=== PATIENT | male | born 1940 | race Caucasian/White ===

== ENCOUNTER → 2018-02-06 11:28 | Outpatient (CLI) | payer MEDICARE, SELFPAY ==
[2018-02-06 12:06] LABS: Absolute Lymphocyte Count 1.88 X10^3/ul (0.83-4.51); Absolute Neutrophil Count 3.2 X10^3/uL (2.0-7.7); Basophil# 0.02 X10^3/uL; Basophil% 0.3 % (0-1); Eosinophil# 0.21 X10^3/uL; Eosinophils% 3.5 % (0-5); Hematocrit 37.8 % (40-54); Hemoglobin 12.4 g/dl (13.0-16.5); Lymphocyte # 1.88 X10^3/ul (4.0); Lymphocyte % 31.3 % (19-41); Mean Corp Hgb Conc 32.8 g/gl (32-36); Mean Corpuscular Hgb 29.4 pg (27.0-32.0); Mean Corpuscular Volume 89.6 fL (80-94); Mean Platelet Vol. 9.3 fl (6.2-12.0); Monocyte% 11.6 % (0-10); Neutrophil # 3.19 X10^3/uL (2.7-7.7); Neutrophil % 53.1 % (47-70); Platelet Count 162 K/mm3 (150-450); RBC Distribution Width CV 15.1 % (11.6-14.6); RBC Distribution Width SD 49.2 fl (35.1-43.9); Red Blood Count 4.22 M/mm3 (4.6-6.2)
[2018-02-06 12:08] LABS: POSITIVE COUNT NO; POSITIVE DIFFERENTIAL NO; POSITIVE MORPHOLOGY NO
[2018-02-06 12:10] LABS: International Normalized Ratio 1.1; Prothrombin Time (Protime)PT. 14.5 SECONDS (11.7-14.9)
[2018-02-06 12:43] LABS: Anion Gap 7 (5-15); BUN 16 mg/dL (7-18); BUN/Creat Ratio 11.2 RATIO (10-20); Calcium,Total 8.4 mg/dL (8.5-10.1); Chloride 108 mmol/L (98-107); Creatinine, Serum 1.43 mg/dL (0.70-1.30); EST Glomerular Filtration Rate 51 mL/min (>60); Est Glom Filt Rate - Afr Amer 62 mL/min (>60); Glucose 86 mg/dL (74-106); Potassium 4.2 mmol/L (3.5-5.1); Sodium Level 140 mmol/L (136-145)
== END ==
PROVIDERS: Family Provider Family Medicine Geriatric Medicine; PCP Family Medicine Geriatric Medicine; Visit Provider Family Medicine Geriatric Medicine
DX: Z01.818 Encounter for other preprocedural examination (principal); I48.0 Paroxysmal atrial fibrillation
CPT/HCPCS: 80048; 85025; 85610

== ENCOUNTER → 2018-03-02 14:11 | Outpatient (CLI) | payer MEDICARE, SELFPAY ==
[2018-03-02 16:34] LABS: Absolute Lymphocyte Count 2.11 X10^3/ul (0.83-4.51); Absolute Neutrophil Count 5.8 X10^3/uL (2.0-7.7); Basophil# 0.02 X10^3/uL; Basophil% 0.2 % (0-1); Eosinophil# 0.07 X10^3/uL; Eosinophils% 0.7 % (0-5); Hemoglobin 11.6 g/dl (13.0-16.5); Lymphocyte # 2.11 X10^3/ul (4.0); Lymphocyte % 22.5 % (19-41); Mean Corp Hgb Conc 33.1 g/gl (32-36); Mean Corpuscular Hgb 29.2 pg (27.0-32.0); Mean Corpuscular Volume 88.2 fL (80-94); Mean Platelet Vol. 9.5 fl (6.2-12.0); Monocyte# 1.33 X10^3/uL; Monocyte% 14.2 % (0-10); Neutrophil # 5.81 X10^3/uL (2.7-7.7); Neutrophil % 62.2 % (47-70); Platelet Count 210 K/mm3 (150-450); RBC Distribution Width CV 14.6 % (11.6-14.6); RBC Distribution Width SD 46.8 fl (35.1-43.9); Red Blood Count 3.97 M/mm3 (4.6-6.2); White Blood Count 9.4 K/mm3 (4.4-11.0)
[2018-03-02 16:57] LABS: Anion Gap 10 (5-15); BUN 23 mg/dL (7-18); BUN/Creat Ratio 11.9 RATIO (10-20); Calcium,Total 8.8 mg/dL (8.5-10.1); Chloride 106 mmol/L (98-107); Creatinine, Serum 1.94 mg/dL (0.70-1.30); EST Glomerular Filtration Rate 36 mL/min (>60); Est Glom Filt Rate - Afr Amer 44 mL/min (>60); Glucose 107 mg/dL (74-106); POSITIVE COUNT NO; POSITIVE DIFFERENTIAL NO; POSITIVE MORPHOLOGY NO; Potassium 3.8 mmol/L (3.5-5.1); Sodium Level 138 mmol/L (136-145); Uric Acid 8.3 mg/dL (3.5-7.2)
== END ==
PROVIDERS: Family Provider Family Medicine Geriatric Medicine; PCP Family Medicine Geriatric Medicine; Visit Provider Family Medicine Geriatric Medicine
DX: R79.9 Abnormal finding of blood chemistry, unspecified (principal)
CPT/HCPCS: 36415; 80048; 84550; 85025

== ENCOUNTER → 2018-05-29 13:28 | Outpatient (CLI) | payer MEDICARE, SELFPAY ==
[2018-05-29 17:12] LABS: Absolute Lymphocyte Count 1.88 X10^3/ul (0.83-4.51); Absolute Neutrophil Count 4.3 X10^3/uL (2.0-7.7); Basophil# 0.02 X10^3/uL; Basophil% 0.3 % (0-1); Eosinophil# 0.09 X10^3/uL; Eosinophils% 1.3 % (0-5); Hematocrit 38.2 % (40-54); Hemoglobin 12.4 g/dl (13.0-16.5); Lymphocyte # 1.88 X10^3/ul (4.0); Lymphocyte % 27.6 % (19-41); Mean Corp Hgb Conc 32.5 g/gl (32-36); Mean Corpuscular Hgb 30.3 pg (27.0-32.0); Mean Corpuscular Volume 93.4 fL (80-94); Mean Platelet Vol. 9.8 fl (6.2-12.0); Monocyte# 0.56 X10^3/uL; Monocyte% 8.2 % (0-10); Neutrophil # 4.26 X10^3/uL (2.7-7.7); Neutrophil % 62.5 % (47-70); Platelet Count 177 K/mm3 (150-450); RBC Distribution Width SD 56.3 fl (35.1-43.9); Red Blood Count 4.09 M/mm3 (4.6-6.2); White Blood Count 6.8 K/mm3 (4.4-11.0)
[2018-05-29 17:33] LABS: ALB/GLOB Ratio 0.9 RATIO (0.9-2.4); AST(SGOT) 22 U/L (15-37); Alanine Aminotransfer ALT/SGPT 24 U/L (16-61); Albumin, Serum 3.1 g/dL (3.2-5.0); Alkaline Phosphatase 84 U/L (45-117); Anion Gap 9 (5-15); BUN 15 mg/dL (7-18); BUN/Creat Ratio 9.9 RATIO (10-20); Calcium,Total 8.3 mg/dL (8.5-10.1); Chloride 108 mmol/L (98-107); Creatinine, Serum 1.51 mg/dL (0.70-1.30); EST Glomerular Filtration Rate 48 mL/min (>60); Est Glom Filt Rate - Afr Amer 58 mL/min (>60); Globulin 3.6 g/dL (2.2-4.2); Glucose 112 mg/dL (74-106); Potassium 4.5 mmol/L (3.5-5.1); Protein, Total 6.7 g/dL (6.4-8.2); Sodium Level 144 mmol/L (136-145); Thyroid Stim Hormone (TSH) 2.43 uIU/mL (0.358-3.74)
[2018-05-29 17:34] LABS: Vitamin D,25 Hydroxy 26.1 ng/mL (29.95-100.01)
[2018-05-29 18:17] LABS: POSITIVE COUNT NO; POSITIVE DIFFERENTIAL NO; POSITIVE MORPHOLOGY NO
== END ==
PROVIDERS: Family Provider Family Medicine Geriatric Medicine; PCP Family Medicine Geriatric Medicine; Visit Provider Family Medicine Geriatric Medicine
DX: I10 Essential (primary) hypertension (principal); E55.9 Vitamin D deficiency, unspecified; M10.9 Gout, unspecified
CPT/HCPCS: 36415; 80053; 82306; 84443; 84550; 85025

== ENCOUNTER → 2018-10-13 12:39 | Outpatient (CLI) | payer MEDICARE, SELFPAY ==
[2018-10-13 13:09] LABS: Hematocrit 37.6 % (40-54); Hemoglobin 12.4 g/dl (13.0-16.5); Mean Corpuscular Hgb 30.7 pg (27.0-32.0); Mean Corpuscular Volume 93.1 fL (80-94); Mean Platelet Vol. 9.3 fl (6.2-12.0); Platelet Count 183 K/mm3 (150-450); RBC Distribution Width CV 14.7 % (11.6-14.6); RBC Distribution Width SD 48.5 fl (35.1-43.9); Red Blood Count 4.04 M/mm3 (4.6-6.2); Scan Indicated on CBC? Y/N NO; White Blood Count 6.1 K/mm3 (4.4-11.0)
[2018-10-13 13:30] LABS: Anion Gap 5 (5-15); BUN 18 mg/dL (7-18); BUN/Creat Ratio 11.2 RATIO (10-20); Calcium,Total 8.5 mg/dL (8.5-10.1); Chloride 108 mmol/L (98-107); Creatinine, Serum 1.61 mg/dL (0.70-1.30); EST Glomerular Filtration Rate 45 mL/min (>60); Est Glom Filt Rate - Afr Amer 54 mL/min (>60); Glucose 95 mg/dL (74-106); Potassium 4.9 mmol/L (3.5-5.1); Sodium Level 140 mmol/L (136-145)
== END ==
PROVIDERS: Family Provider Family Medicine Geriatric Medicine; PCP Family Medicine Geriatric Medicine; Referring Provider Family Medicine Geriatric Medicine; Visit Provider Family Medicine Geriatric Medicine
DX: Z01.810 Encounter for preprocedural cardiovascular examination (principal)
CPT/HCPCS: 36415; 80048; 85027

== ENCOUNTER → 2018-11-27 13:41 | Outpatient (CLI) | payer MEDICARE, SELFPAY ==
--- NOTE | 2018-11-27 13:44 | VDLE_ITS ---
Reason For Study: PAIN RIGHT GSV is normal. CFV is compressible, spontaneous, phasic, competent and demonstrates normal augmentation. FV is compressible, spontaneous, phasic, competent and demonstrates normal augmentation. POP V is compressible, spontaneous, phasic, competent and demonstrates normal augmentation. T/P Trunk is compressible. PTV is compressible. RT PerV is compressible. Procedure Exam performed in department. A preliminary report was called and/or faxed to [facility]. Interpretation Summary Deep veins of the right lower extremity are patent and compressible segmentally. There is no evidence of right lower extremity deep vein thrombosis. Valvular competence appears intact within the proximal deep venous system on the right . The right greater saphenous vein appears patent and compressible segmentally. Ordering Physician: Britton Pike, GL[employer]ING MACHINE FEEDER-C Referring Physician: BLAINE PINEDA CHI Performed By: Brittany Zhao, AILIN, RVT
--- OUTSIDE RECORDS SUMMARY | 2019-01-30 01:52 | XMS RPT_ITS ---
:1940 Author Organization OHIP Care Team Providers Name Role Phone Avni Smith Attending Unavailable PROVIDER, UNKNOWN Referring Unavailable MIRIAM, BLAINE-CHI Primary Care Unavailable Britton Canela Attending Unavailable Britton Canela Referring Unavailable Miriam, Blaine Chi Primary Care Unavailable Miriam, Blaine Chi Attending Unavailable Miriam, Blaine Chi Primary Care Unavailable Miriam, Blaine Chi Attending Unavailable Miriam, Blaine Chi Primary Care Unavailable Miriam, Blaine Chi Attending Unavailable Miriam, Blaine Chi Primary Care Unavailable Miriam, Blaine Chi Attending Unavailable Miriam, Blaine Chi Primary Care Unavailable Miriam, Blaine Chi Attending Unavailable Miriam, Blaine Chi Referring Unavailable Miriam, Blaine Chi Primary Care Unavailable PROBLEMS PROBLEMS DATE TYPE CONDITION / CODE ATTENDING STATUS SOURCE 10/13/2018 Unknown Z01.810 - Encounter Miriam, Blaine Chi Active [place] for preprocedural [facility] Hospital examination / Repository Z01.810(ICD-10) 02/06/2018 Unknown Z01.818 - Encounter Miriam, Blaine Chi Active [place] for other [facility] preprocedural Hospital examination / Repository Z01.818(ICD-10) 01/17/2018 Admitting Spinal stenosis, Luis, Active [facility] Diagnosis lumbar region [facility] without neurogenic Repository allie / M48.061(ICD-10) 01/17/2018 Admitting 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 Rep #: [id number] : 1940 78 From: Dell Aguilar MD Attending Dr: SADA Reed Status: REG CLI Ordering Dr: Britton Canela Date: 11/27/18 Location: [facility]S Sex: M C Admitted: Reason For Study: PAIN RIGHT GSV is normal. CFV is compressible, spontaneous, phasic, competent and demonstrates normal augmentation. FV is compressible, spontaneous, phasic, competent and demonstrates normal augmentation. POP V is compressible, spontaneous, phasic, competent and demonstrates normal augmentation. T/P Trunk is compressible. PTV is compressible. RT PerV is compressible. Procedure Exam performed in department. A preliminary report was called and/or faxed to [facility]. Interpretation Summary Deep veins of the right lower extremity are patent and compressible segmentally. There is no evidence of right lower extremity deep vein thrombosis. Valvular competence appears intact within the proximal deep venous system on the right . The right greater saphenous vein appears patent and compressible segmentally. Ordering Physician: SADA Reed Referring Physician: BLAINE PINEDA CHI Performed By: Brittany Zhao, AILIN, RVT 11/28/18 1630 Date Dell Aguilar MD CC: ROLL GRINDER OPERATOR-C Britton Canela; Blaine Pineda MD Date Dictated: 11/27/18 1401 Date Transcribed: 11/28/18 1630 Cheese Tester: Signed CBC W/DIFF, AUTOMATED Collected: 11/28/2018 Status: F Source: [place] 4:15 PM [facility] REPOSITORY TYPE CODE TESTS RESULT OUT OF RANGE REFERENCE UNITS LAB L100.1000 4.4-11.0 K/mm3 Normal WBC 7.1 LAB L100.1200 4.6-6.2 M/mm3 Low RBC 3.12 LAB L100.1300 13.0-16.5 g/dl Low HGB 9.0 LAB L100.1400 40-54 % Low HCT 28.6 LAB L100.1500 80-94 fL Normal MCV 91.7 LAB L100.1600 27.0-32.0 pg Normal MCH 28.8 LAB L100.1700 32-36 g/gl Low MCHC 31.5 LAB L100.1810 11.6-14.6 % Normal RDW CV 14.2 LAB L100.1820 35.1-43.9 fl High RDW SD 46.7 LAB L100.1900 150-450 K/mm3 Normal PLT 382 LAB L100.2000 6.2-12.0 fl Normal MPV 8.7 LAB L100.2100 47-70 % Normal NEUT% 63.2 LAB L100.2200 19-41 % Normal LY% 23.7 LAB L100.2300 0-10 % Normal MONO% 9.5 LAB L100.2400 0-5 % Normal EO% 2.8 LAB L100.2500 0-1 % Normal BASO% 0.7 LAB L100.2550 0.0-0.9 % Normal IM GRAN % 0.100 Result Comment: IG% - Immature Granulocytes (promyelocytes, myelocytes and metamyelocytes) > 1% indicates that a LEFT SHIFT is Present. LAB L100.2620 2.0-7.7 X10 3/uL Normal Absolute Neut 4.5 LAB L100.2720 0.83-4.51 X10 3/ul Normal Absolute Lymph 1.69 Performed By: #### L100.0100 #### [facility] [place], [place], [address] COMPREHENSIVE METABOLIC Collected: 11/28/2018 Status: F Source: [place]ONE[place] 4:15 PM [facility] REPOSITORY TYPE CODE TESTS RESULT OUT OF RANGE REFERENCE UNITS LAB L501.0100 74-106 mg/dL Normal GLU 105 Result Comment: Fasting Glucose result from 100 to 125 mg/dL suggests IMPAIRED HOMEOSTASIS per A.D.A. criteria. Please note revised GLUCOSE reference range effective 2017. LAB L501.1000 7-18 mg/dL Normal BUN 12 LAB L501.1100 0.70-1.30 mg/dL High CREAT,SERUM 1.35 Result Comment: The validity of the calculated GFR AND GFRAA in patients over 70 years has not been determined. Clinical correlation is essential. LAB L501.1110 >60 mL/min Low EST GFR 55 Result Comment: Non- GFR Calc LAB L501.1115 >60 mL/min Normal EST GFR - AA 66 Result Comment: GFR Calc LAB L501.1300 10-20 RATIO Low BUN/CRE 8.9 LAB L501.1500 6.4-8.2 g/dL Normal T PROT 6.6 LAB L501.1800 3.2-5.0 g/dL Low ALB 2.8 LAB L501.1950 2.2-4.2 g/dL Normal GLOB 3.8 LAB L501.2000 0.9-2.4 RATIO Low A/G 0.7 LAB L501.2200 8.5-10.1 mg/dL Low CA 8.4 LAB L501.4100 15-37 U/L Normal AST 23 LAB L501.4305 45-117 U/L Normal ALK P 102 LAB L501.4405 16-61 U/L Normal ALT 26 LAB L501.4600 0.20-1.00 mg/dL Normal T BILI 0.20 LAB L501.5300 136-145 mmol/L Normal NA 141 LAB L501.5600 3.5-5.1 mmol/L Normal K 4.2 LAB L501.5900 98-107 mmol/L Normal CL 107 LAB L501.6100 21.0-32.0 mmol/L Normal CO2 24.0 LAB L501.6200 5-15 Normal GAP 10 Performed By: #### L500.4050, L500.4100, L501.1400, L501.9520 #### [facility] [address] [place], [place], [address] LIPID PROFILE Collected: 11/28/2018 Status: F Source: [place] 4:15 PM [facility] REPOSITORY TYPE CODE TESTS RESULT OUT OF RANGE REFERENCE UNITS LAB L501.4900 200 mg/dL Normal CHOL 106 Result Comment: <200 mg/dL Desirable 200-240 mg/dL Borderline >240 mg/dL High Risk LAB L501.5000 mg/dL Normal TRIG 137 Result Comment: The drugs N-Acetylcysteine and Metamizole may falsely depress this assay. Serum Triglycerides Reference Interval Normal <150 mg/dL Borderline high 150 - 199 mg/dL High 200 - 499 mg/dL Very High > or = 500 mg/dL LAB L501.6400 mg/dL Low HDL 29 Result Comment: The drugs N-Acetylcysteine and Metamizole may falsely depress this assay. Reference Range HDL <40 mg/dL Low HDL Cholesterol HDL >or= 60 mg/dL High HDL Cholesterol LAB L501.6500 0-130 mg/dL Normal LDL 50 LAB L501.6600 5-40 mg/dL Normal VLDL 27 Performed By: #### L500.4050, L500.4100, L501.1400, L501.9520 #### [facility] [address] [place], [place], [address] URIC ACID Collected: 11/28/2018 Status: F Source: [place] 4:15 PM [facility] REPOSITORY TYPE CODE TESTS RESULT OUT OF RANGE REFERENCE UNITS LAB L501.1400 3.5-7.2 mg/dL High URIC 8.2 Result Comment: The drugs N-Acetylcysteine and Metamizole may falsely depress this assay. Performed By: #### L500.4050, L500.4100, L501.1400, L501.9520 #### [facility] [address] [place], [place], [address] THYROID STIM HORMONE Collected: 11/28/2018 Status: F Source: [place] (TSH) 4:15 PM [facility] REPOSITORY TYPE CODE TESTS RESULT OUT OF RANGE REFERENCE UNITS LAB L501.9520 0.358-3.74 uIU/mL Normal TSH 1.01 Performed By: #### L500.4050, L500.4100, L501.1400, L501.9520 #### [facility] [address] [place], [address] VITAMIN D,25 HYDROXY Collected: 11/28/2018 Status: F Source: [place] 4:15 PM [facility] REPOSITORY TYPE CODE TESTS RESULT OUT OF REFERENCE UNITS RANGE LAB L506.1000 29.95-100.01 ng/mL Low Vitamin D 17.2 25-OH Result Comment: Vitamin D 25(OH) Status Range Deficiency <20 ng/mL (50nmol/L) Insuffciency 20 - 30 ng/mL (50 - 75 nmol/L) Sufficiency 30 - 100 ng/mL (75 - 250 nmol/L) Toxicity >100 ng/mL (>250 nmol/L) Performed By: #### L506.1000 #### [facility] [address] [place], [place], [address] CBC-COMPLETE BLOOD CNT Collected: 10/13/2018 Status: F Source: [place] NO DIFF 12:48 PM [facility] REPOSITORY Order Comment: PT REFUSED INR INSURANCE WONT COVER. TYPE CODE TESTS RESULT OUT OF RANGE REFERENCE UNITS LAB L100.1000 4.4-11.0 K/mm3 Normal WBC 6.1 LAB L100.1200 4.6-6.2 M/mm3 Low RBC 4.04 LAB L100.1300 13.0-16.5 g/dl Low HGB 12.4 LAB L100.1400 40-54 % Low HCT 37.6 LAB L100.1500 80-94 fL Normal MCV 93.1 LAB L100.1600 27.0-32.0 pg Normal MCH 30.7 LAB L100.1700 32-36 g/gl Normal MCHC 33.0 LAB L100.1810 11.6-14.6 % High RDW CV 14.7 LAB L100.1820 35.1-43.9 fl High RDW SD 48.5 LAB L100.1900 150-450 K/mm3 Normal PLT 183 LAB L100.2000 6.2-12.0 fl Normal MPV 9.3 Performed By: #### L100.0500 #### [facility] [address] [place], [address] BASIC METABOLIC Collected: 10/13/2018 Status: F Source: [place] ESCOBAR ([facility]) 12:48 PM [facility] REPOSITORY Order Comment: PT REFUSED INR INSURANCE WONT COVER. TYPE CODE TESTS RESULT OUT OF RANGE REFERENCE UNITS LAB L501.0100 74-106 mg/dL Normal GLU 95 Result Comment: Please note revised GLUCOSE reference range effective 2017. LAB L501.1000 7-18 mg/dL Normal BUN 18 LAB L501.1100 0.70-1.30 mg/dL High CREAT,SERUM 1.61 Result Comment: The validity of the calculated GFR AND GFRAA in patients over 70 years has not been determined. Clinical correlation is essential. LAB L501.1110 >60 mL/min Low EST GFR 45 Result Comment: Non- GFR Calc LAB L501.1115 >60 mL/min Low EST GFR - AA 54 Result Comment: GFR Calc LAB L501.1300 10-20 RATIO Normal BUN/CRE 11.2 LAB L501.2200 8.5-10.1 mg/dL CA Normal 8.5 LAB L501.5300 136-145 mmol/L NA Normal 140 LAB L501.5600 3.5-5.1 mmol/L K Normal 4.9 LAB L501.5900 98-107 mmol/L High CL 108 LAB L501.6100 21.0-32.0 mmol/L Normal CO2 27.0 LAB L501.6200 5-15 Normal GAP 5 Performed By: #### L500.2500 #### [facility] [place], [address] COMPREHENSIVE METABOLIC Collected: 05/29/2018 Status: F Source: [place] ROONEY 1:31 PM [facility] REPOSITORY TYPE CODE TESTS RESULT OUT OF RANGE REFERENCE UNITS LAB L501.0100 74-106 mg/dL High GLU 112 Result Comment: Fasting Glucose result from 100 to 125 mg/dL suggests IMPAIRED HOMEOSTASIS per A.D.A. criteria. Please note revised GLUCOSE reference range effective 2017. LAB L501.1000 7-18 mg/dL Normal BUN 15 LAB L501.1100 0.70-1.30 mg/dL High CREAT,SERUM 1.51 Result Comment: The validity of the calculated GFR AND GFRAA in patients over 70 years has not been determined. Clinical correlation is essential. LAB L501.1110 >60 mL/min Low EST GFR 48 Result Comment: Non- GFR Calc LAB L501.1115 >60 mL/min Low EST GFR - AA 58 Result Comment: GFR Calc LAB L501.1300 10-20 RATIO Low BUN/CRE 9.9 LAB L501.1500 6.4-8.2 g/dL Normal T PROT 6.7 LAB L501.1800 3.2-5.0 g/dL Low ALB 3.1 LAB L501.1950 2.2-4.2 g/dL Normal GLOB 3.6 LAB L501.2000 0.9-2.4 RATIO Normal A/G 0.9 LAB L501.2200 8.5-10.1 mg/dL Low CA 8.3 LAB L501.4100 15-37 U/L Normal AST 22 LAB L501.4305 45-117 U/L Normal ALK P 84 LAB L501.4405 16-61 U/L Normal ALT 24 LAB L501.4600 0.20-1.00 mg/dL Normal T BILI 0.30 LAB L501.5300 136-145 mmol/L Normal NA 144 LAB L501.5600 3.5-5.1 mmol/L Normal K 4.5 LAB L501.5900 98-107 mmol/L High CL 108 LAB L501.6100 21.0-32.0 mmol/L Normal CO2 27.0 LAB L501.6200 5-15 Normal GAP 9 Performed By: #### L500.4050, L501.1400, L501.9520 #### [facility] [address] [place], [place], [address] URIC ACID Collected: 05/29/2018 Status: F Source: [place] 1:31 PM [facility] REPOSITORY TYPE CODE TESTS RESULT OUT OF RANGE REFERENCE UNITS LAB L501.1400 3.5-7.2 mg/dL High URIC 8.0 Result Comment: The drugs N-Acetylcysteine and Metamizole may falsely depress this assay. Performed By: #### L500.4050, L501.1400, L501.9520 #### [facility] [address] [place], [address] THYROID STIM HORMONE Collected: 05/29/2018 Status: F Source: [place] (TSH) 1:31 PM [facility] REPOSITORY TYPE CODE TESTS RESULT OUT OF RANGE REFERENCE UNITS LAB L501.9520 0.358-3.74 uIU/mL Normal TSH 2.43 Performed By: #### L500.4050, L501.1400, L501.9520 #### [facility] [address] [place], [address] VITAMIN D,25 HYDROXY Collected: 05/29/2018 Status: F Source: [place] 1:31 PM [facility] REPOSITORY TYPE CODE TESTS RESULT OUT OF REFERENCE UNITS RANGE LAB L506.1000 29.95-100.01 ng/mL Low Vitamin D 26.1 25-OH Result Comment: Vitamin D 25(OH) Status Range Deficiency <20 ng/mL (50nmol/L) Insuffciency 20 - 30 ng/mL (50 - 75 nmol/L) Sufficiency 30 - 100 ng/mL (75 - 250 nmol/L) Toxicity >100 ng/mL (>250 nmol/L) Performed By: #### L506.1000 #### [facility] [address] [place], [address] CBC W/DIFF, AUTOMATED Collected: 05/29/2018 Status: F Source: [place] 1:31 PM [facility] REPOSITORY TYPE CODE TESTS RESULT OUT OF RANGE REFERENCE UNITS LAB L100.1000 4.4-11.0 K/mm3 Normal WBC 6.8 LAB L100.1200 4.6-6.2 M/mm3 Low RBC 4.09 LAB L100.1300 13.0-16.5 g/dl Low HGB 12.4 LAB L100.1400 40-54 % Low HCT 38.2 LAB L100.1500 80-94 fL Normal MCV 93.4 LAB L100.1600 27.0-32.0 pg Normal MCH 30.3 LAB L100.1700 32-36 g/gl Normal MCHC 32.5 LAB L100.1810 11.6-14.6 % High RDW CV 17.0 LAB L100.1820 35.1-43.9 fl High RDW SD 56.3 LAB L100.1900 150-450 K/mm3 Normal PLT 177 LAB L100.2000 6.2-12.0 fl Normal MPV 9.8 LAB L100.2100 47-70 % Normal NEUT% 62.5 LAB L100.2200 19-41 % Normal LY% 27.6 LAB L100.2300 0-10 % Normal MONO% 8.2 LAB L100.2400 0-5 % Normal EO% 1.3 LAB L100.2500 0-1 % Normal BASO% 0.3 LAB L100.2550 0.0-0.9 % Normal IM GRAN % 0.100 Result Comment: IG% - Immature Granulocytes (promyelocytes, myelocytes and metamyelocytes) > 1% indicates that a LEFT SHIFT is Present. LAB L100.2620 2.0-7.7 X10 3/uL Normal Absolute Neut 4.3 LAB L100.2720 0.83-4.51 X10 3/ul Normal Absolute Lymph 1.88 Performed By: #### L100.0100 #### [facility] [address] [place], [address] BASIC METABOLIC Collected: 03/02/2018 Status: F Source: [place] PROFILE ([facility]) 2:12 PM [facility] REPOSITORY TYPE CODE TESTS RESULT OUT OF RANGE REFERENCE UNITS LAB L501.0100 74-106 mg/dL High GLU 107 Result Comment: Fasting Glucose result from 100 to 125 mg/dL suggests IMPAIRED HOMEOSTASIS per A.D.A. criteria. Please note revised GLUCOSE reference range effective 2017. LAB L501.1000 7-18 mg/dL High BUN 23 LAB L501.1100 0.70-1.30 mg/dL High CREAT,SERUM 1.94 Result Comment: The validity of the calculated GFR AND GFRAA in patients over 70 years has not been determined. Clinical correlation is essential. LAB L501.1110 >60 mL/min Low EST GFR 36 Result Comment: Non- GFR Calc LAB L501.1115 >60 mL/min Low EST GFR - AA 44 Result Comment: GFR Calc LAB L501.1300 10-20 RATIO Normal BUN/CRE 11.9 LAB L501.2200 8.5-10.1 mg/dL CA Normal 8.8 LAB L501.5300 136-145 mmol/L NA Normal 138 LAB L501.5600 3.5-5.1 mmol/L K Normal 3.8 LAB L501.5900 98-107 mmol/L CL Normal 106 LAB L501.6100 21.0-32.0 mmol/L Normal CO2 22.0 LAB L501.6200 5-15 Normal GAP 10 Performed By: #### L500.2500, L501.1400 #### [facility] [address] [place], [address] URIC ACID Collected: 03/02/2018 Status: F Source: [place] 2:12 PM [facility] REPOSITORY TYPE CODE TESTS RESULT OUT OF RANGE REFERENCE UNITS LAB L501.1400 3.5-7.2 mg/dL High URIC 8.3 Result Comment: The drugs N-Acetylcysteine and Metamizole may falsely depress this assay. Performed By: #### L500.2500, L501.1400 #### [facility] [address] [place], [address] CBC W/DIFF, AUTOMATED Collected: 03/02/2018 Status: F Source: [place] 2:12 PM [facility] REPOSITORY TYPE CODE TESTS RESULT OUT OF RANGE REFERENCE UNITS LAB L100.1000 4.4-11.0 K/mm3 Normal WBC 9.4 LAB L100.1200 4.6-6.2 M/mm3 Low RBC 3.97 LAB L100.1300 13.0-16.5 g/dl Low HGB 11.6 LAB L100.1400 40-54 % Low HCT 35.0 LAB L100.1500 80-94 fL Normal MCV 88.2 LAB L100.1600 27.0-32.0 pg Normal MCH 29.2 LAB L100.1700 32-36 g/gl Normal MCHC 33.1 LAB L100.1810 11.6-14.6 % Normal RDW CV 14.6 LAB L100.1820 35.1-43.9 fl High RDW SD 46.8 LAB L100.1900 150-450 K/mm3 Normal PLT 210 LAB L100.2000 6.2-12.0 fl Normal MPV 9.5 LAB L100.2100 47-70 % Normal NEUT% 62.2 LAB L100.2200 19-41 % Normal LY% 22.5 LAB L100.2300 0-10 % High MONO% 14.2 LAB L100.2400 0-5 % Normal EO% 0.7 LAB L100.2500 0-1 % Normal BASO% 0.2 LAB L100.2550 0.0-0.9 % Normal IM GRAN % 0.200 Result Comment: IG% - Immature Granulocytes (promyelocytes, myelocytes and metamyelocytes) > 1% indicates that a LEFT SHIFT is Present. LAB L100.2620 2.0-7.7 X10 3/uL Normal Absolute Neut 5.8 LAB L100.2720 0.83-4.51 X10 3/ul Normal Absolute Lymph 2.11 Performed By: #### L100.0100 #### [facility] [address] [place], [address] CBC W/DIFF, AUTOMATED Collected: 02/06/2018 Status: F Source: [place] 11:30 AM [facility] REPOSITORY TYPE CODE TESTS RESULT OUT OF RANGE REFERENCE UNITS LAB L100.1000 4.4-11.0 K/mm3 Normal WBC 6.0 LAB L100.1200 4.6-6.2 M/mm3 Low RBC 4.22 LAB L100.1300 13.0-16.5 g/dl Low HGB 12.4 LAB L100.1400 40-54 % Low HCT 37.8 LAB L100.1500 80-94 fL Normal MCV 89.6 LAB L100.1600 27.0-32.0 pg Normal MCH 29.4 LAB L100.1700 32-36 g/gl Normal MCHC 32.8 LAB L100.1810 11.6-14.6 % High RDW CV 15.1 LAB L100.1820 35.1-43.9 fl High RDW SD 49.2 LAB L100.1900 150-450 K/mm3 Normal PLT 162 LAB L100.2000 6.2-12.0 fl Normal MPV 9.3 LAB L100.2100 47-70 % Normal NEUT% 53.1 LAB L100.2200 19-41 % Normal LY% 31.3 LAB L100.2300 0-10 % High MONO% 11.6 LAB L100.2400 0-5 % Normal EO% 3.5 LAB L100.2500 0-1 % Normal BASO% 0.3 LAB L100.2550 0.0-0.9 % Normal IM GRAN % 0.200 Result Comment: IG% - Immature Granulocytes (promyelocytes, myelocytes and metamyelocytes) > 1% indicates that a LEFT SHIFT is Present. LAB L100.2620 2.0-7.7 X10 3/uL Normal Absolute Neut 3.2 LAB L100.2720 0.83-4.51 X10 3/ul Normal Absolute Lymph 1.88 Performed By: #### L100.0100 #### [facility] [address] [place], [address] PROTHROMBIN TIME W/INR Collected: 02/06/2018 Status: F Source: [place] 11:30 AM [facility] REPOSITORY TYPE CODE TESTS RESULT OUT OF RANGE REFERENCE UNITS LAB L300.4150 11.7-14.9 SECONDS Normal PROTIME 14.5 LAB L300.4200 Normal INR 1.1 Performed By: #### L300.3900 #### [facility] [address] [place], [address] BASIC METABOLIC Collected: 02/06/2018 Status: F Source: [place] PROFILE (BMP) 11:30 AM [facility] REPOSITORY TYPE CODE TESTS RESULT OUT OF RANGE REFERENCE UNITS LAB L501.0100 74-106 mg/dL Normal GLU 86 Result Comment: Please note revised GLUCOSE reference range effective 2017. LAB L501.1000 7-18 mg/dL Normal BUN 16 LAB L501.1100 0.70-1.30 mg/dL High CREAT,SERUM 1.43 Result Comment: The validity of the calculated GFR AND GFRAA in patients over 70 years has not been determined. Clinical correlation is essential. LAB L501.1110 >60 mL/min Low EST GFR 51 Result Comment: Non- GFR Calc LAB L501.1115 >60 mL/min Normal EST GFR - AA 62 Result Comment: GFR Calc LAB L501.1300 10-20 RATIO Normal BUN/CRE 11.2 LAB L501.2200 8.5-10.1 mg/dL Low CA 8.4 LAB L501.5300 136-145 mmol/L NA Normal 140 LAB L501.5600 3.5-5.1 mmol/L K Normal 4.2 LAB L501.5900 98-107 mmol/L High CL 108 LAB L501.6100 21.0-32.0 mmol/L Normal CO2 25.0 LAB L501.6200 5-15 Normal GAP 7 Performed By: #### L500.2500 #### [facility] [address] [place], [address] CT SPINE LUMBAR W/ Observed: 01/17/2018 Status: F Source: smsPREP CONTRAST 12:47 PM SYSTEM REPOSITORY Patient Name: FORTINO ROGERS Jr CT Exam Date/Time 01/17/2018 10:22:[address] Spine Lumbar w/ Contrast Ordering Physician KAYA VALENTE NICOLE Accession Number [id number] CPT4 Codes 07518 () Reason For Exam DDD, radiculopathy lumbar region, DISH, sp lumbar fusion Report Examination: Lumbar myelogram (CT and radiographs) Indication: Lumbar stenosis. History of L4-L5 laminectomy with pedicle fusion. COMPARISON: Preop MRI of lumbar spine was obtained in 2010. Technique: Informed consent was obtained. Following this, the patient was placed on the fluoroscopy table in the prone position. Approximately 3 to 4 cc of lidocaine was used for local anesthesia. A 20 2G spinal needle was advanced into the thecal sac at the L3 level. This was achieved without difficulty. Following the confirmation of CSF return from the needle and direct visualization under fluoroscopy, approximately 15 cc of Isovue-200 was instilled into the thecal sac. The patient tolerated the procedure well without any immediate complications. Patient was transferred to CT department. FLUOROSCOPIC TIME: 0.4 minutes FLUOROSCOPIC DOSE: 22.2 mGy Findings: [address] images and fluoroscopic myelographic images demonstrate normal appearance of the conus medullaris terminating at the L1 level. There is no clumping of the nerve roots. There is near-anatomic alignment of lumbar vertebra with marked narrowing of the L3-L4 and L5-S1 disc spaces. There is no vertebral compression fracture. Large anterior endplate osteophytes are identified at all levels. T12-L1: No disc bulge, canal or neural foraminal narrowing. Mild facet osteoarthritis. L1-L2: No disc bulge, canal or neural foraminal narrowing. Facet osteoarthritis. L2-L3: Disc is desiccated and narrowed. There is diffuse disc bulge with severe ligamentum flavum hypertrophy and facet osteoarthritis which results in severe canal and bilateral recess stenosis with moderate bilateral neural foraminal stenosis. L3-L4: Disc is desiccated. There is severe canal and bilateral lateral recess stenoses secondary to right paralumbar disc protrusion with endplate osteophyte complex and ligamentum flavum hypertrophy with facet osteoarthritis. Severe right-sided and moderate left-sided neural foraminal stenosis. L4-L5: Posterior laminectomy changes show patent canal with moderate right and mild left neural foraminal stenosis. L5-S1: Posterior laminectomy with intact hardware. Trace anterolisthesis of L5 on S1 with posterior endplate osteophytes. The disc is desiccated. There is disc bulge with mild right paracentral thecal sac effacement. Moderate bilateral neural foraminal narrowing is noted. IMPRESSION: 1. 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 2. Trace anterolisthesis of L5 and S1 with mild right paracentral stenosis and bilateral neural foraminal narrowing. 3. L4-L5 posterior laminectomy with intact pedicle screw fixation. 4. 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 Report Dictated on Final Dictated: 01/17/2018 12:43 pm Dictating Physician: RHIANNON KC DO, I Signed Date and Time: 01/17/2018 1:21 pm Signed by: RHIANNON KC DO, I Transcribed Date and Time: 01/17/2018 12:47 XA SPECIAL ANGIOGRAPHY Observed: 01/17/2018 Status: F Source: smsPREP PROCEDURE 12:47 PM SYSTEM REPOSITORY Patient Name: FORTINO ROGERS Jr Special Procedures Exam Date/Time 01/17/2018 10:01:44 EDT Exam XA Special Angiography Procedure Ordering Physician KYAA VALENTE NICOLE Accession Number [id number] Reason For Exam Lumbar myelogram / diffuse idiopathic skeletal hyperstosis, degenerative disc disease, radiculopathy lumbar region Report Examination: Lumbar myelogram (CT and radiographs) Indication: Lumbar stenosis. History of L4-L5 laminectomy with pedicle fusion. COMPARISON: Preop MRI of lumbar spine was obtained in 2010. Technique: Informed consent was obtained. Following this, the patient was placed on the fluoroscopy table in the prone position. Approximately 3 to 4 cc of lidocaine was used for local anesthesia. A 20 2G spinal needle was advanced into the thecal sac at the L3 level. This was achieved without difficulty. Following the confirmation of CSF return from the needle and direct visualization under fluoroscopy, approximately 15 cc of Isovue-200 was instilled into the thecal sac. The patient tolerated the procedure well without any immediate complications. Patient was transferred to CT department. FLUOROSCOPIC TIME: 0.4 minutes FLUOROSCOPIC DOSE: 22.2 mGy Findings: [address] images and fluoroscopic myelographic images demonstrate normal appearance of the conus medullaris terminating at the L1 level. There is no clumping of the nerve roots. There is near-anatomic alignment of lumbar vertebra with marked narrowing of the L3-L4 and L5-S1 disc spaces. There is no vertebral compression fracture. Large anterior endplate osteophytes are identified at all levels. T12-L1: No disc bulge, canal or neural foraminal narrowing. Mild facet osteoarthritis. L1-L2: No disc bulge, canal or neural foraminal narrowing. Facet osteoarthritis. L2-L3: Disc is desiccated and narrowed. There is diffuse disc bulge with severe ligamentum flavum hypertrophy and facet osteoarthritis which results in severe canal and bilateral recess stenosis with moderate bilateral neural foraminal stenosis. L3-L4: Disc is desiccated. There is severe canal and bilateral lateral recess stenoses secondary to right paralumbar disc protrusion with endplate osteophyte complex and ligamentum flavum hypertrophy with facet osteoarthritis. Severe right-sided and moderate left-sided neural foraminal stenosis. L4-L5: Posterior laminectomy changes show patent canal with moderate right and mild left neural foraminal stenosis. L5-S1: Posterior laminectomy with intact hardware. Trace anterolisthesis of L5 on S1 with posterior endplate osteophytes. The disc is desiccated. There is disc bulge with mild right paracentral thecal sac effacement. Moderate bilateral neural foraminal narrowing is noted. IMPRESSION: 1. 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 2. Trace anterolisthesis of L5 and S1 with mild right paracentral stenosis and bilateral neural foraminal narrowing. 3. L4-L5 posterior laminectomy with intact pedicle screw fixation. 4. 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 Report Dictated on Final Dictated: 01/17/2018 12:43 pm Dictating Physician: RHIANNON KC DO, I Signed Date and Time: 01/17/2018 1:21 pm Signed by: RHIANNON KC DO, I Transcribed Date and Time: 01/17/2018 12:47 PLATELET COUNT Collected: 01/17/2018 Status: F Source: smsPREP 8:27 AM SYSTEM REPOSITORY TYPE CODE TESTS RESULT OUT OF REFERENCE UNITS RANGE LAB PLT 140-440 10*3/uL Platelet 171 Performed By: #### PLTCT, PT #### The performing lab is in the report. PROTHROMBIN TIME Collected: 01/17/2018 Status: F Source: smsPREP 8:27 AM SYSTEM REPOSITORY TYPE CODE TESTS RESULT OUT OF REFERENCE UNITS RANGE LAB PROTM 9.0-12.0 s Prothrombin Time 10.8 Result Comment: . LAB INR 0.9-1.1 INR 1.0 Result Comment: Recommended Anticoagulant Therapy: SEE BELOW ----- INR of 2.0 - 3.0 : - Prophylaxis of Venous Thrombosis (high-risk surgery) - Treatment of Venous Thrombosis - Treatment of Pulmonary Embolism (Includes tissue heart valves, Acute Myocardial Infarction to prevent systemic embolism, Valvular Heart Disease, and Atrial Fibrillation) ----- INR of 2.5 - 3.5 : - Mechanical Prosthetic Valves (high risk) - If oral anticoagulant therapy is used to prevent Myocardial Infarction Performed By: #### PLTCT, PT #### The performing lab is in the report. ALLERGIES ALLERGIES DATE TYPE / CODE NAME / CODE REACTION SEVERITY SOURCE 05/01/2014 Drug No Known Unknown [facility] Allergy/4160 Allergies/F00 [facility] 26416(SNOMED 2929849(RXNOR Repository CT) M) ENCOUNTERS ENCOUNTERS ADMIT/DISCHARGE ACCOUNT NUMBER ADMITTING ENCOUNTER LOCATION SOURCE CLASS 11/28/2018 [id number] Ambulatory [facility] ding:POLAB3 Repository 11/27/2018 [id number] [facility] ding:[facility] Repository 10/13/2018 [id number] [facility]ulatory [facility] ding:LAB Repository 05/29/2018 [id number] [facility] ding:POLAB3 Repository 03/02/2018 [id number] [facility] ding:POLAB3 Repository 02/06/2018 [id number] [facility] ding:POLAB3 Repository 01/17/2018 [id number] [facility] [address] [place] [address]: System [id number]: Repository [id number] PAYERS PAYERS ENCOUNTER GUARANTOR PAYER SUBSCRIBER SOURCE 11/28/2018 FORTINO ROGERS Primary FORTINO Ramsey [id number] Insurance:[employer] C[employer] JrEliud: Community [place] MEDICARE[place], [place] Number: Repository 188[address]Upm: 419 [id number] [phone] () Date:9712-85-29[address] [place] [address]VD: 11/28/2018 Secondary NOT GIVENUNK [place] Insurance:SELF PAY [facility] Number: Effective Repository Date:2018-11-28 11/27/2018 FORTINO ROGERS Primary FORTINO [place] [id number] Insurance:[employer] CARE Jr.: Community [place] MEDIC[id number] Repository [address]Ymu: 419 [id number] [phone] (HP) Date:0223-80-97[address] [place] [address] 07901QL: 11/27/2018 Secondary NOT GIVENUNK [place] Insurance:SELF PAY [facility] Number: Effective Repository Date:2018-11-27 10/13/2018 FORTINO ROGERS Primary FORTINO [place] [id number] Insurance:[employer] C[employer] JrEliud: Community [place] MEDICAREPolicy [place] Number: Repository [address]Umh: (419 [id number] [phone] (HP) Date:1521-01-83[address] [address]JF: 10/13/2018 Secondary NOT GIVENUNK [place] Insurance:SELF PAY [facility] Number: Effective Repository Date:2018-10-13 05/29/2018 FORTINO Penaloza [place] Primary FORTINO ROGERS [place] Jr.[id number] Insurance:[employer] CARE Jr.: [place] MEDICAREPolicy [id number] [place] Number[facility] Repository [address]Caf: (419 [id number] [phone] (HP) Date:3769-69-31[address] [address]JS: 05/29/2018 Secondary NOT GIVENUNK [place] Insurance:SELF PAY [facility] Number: Effective Repository Date:2018-05-29 03/02/2018 FORTINO Penaloza [facility] FORTION ROGERS [place] Jr.[id number] Insurance:[employer] CARE Jr.: [place] MEDICAREPolicy [id number] [place] Number: Repository [id number]: (419 [id number] [phone] (HP) Date:8941-81-97[address] [address]QL: 03/02/2018 Secondary NOT GIVENUNK [place] Insurance:SELF PAY [facility] Number: Effective Repository Date:2018-03-02 02/06/2018 FORTINO Penaloza [facility] FORTINO ROGERS [place] Jr.[id number] Insurance:[employer] CARE Jr.: [place] MEDICAREPolicy [id number] Number: Repository [address]Vwd: (419 [id number] [phone] (HP) Date:3398-03-86[address] [address]TW: 02/06/2018 Secondary NOT GIVENUNK [place] Insurance:SELF PAY [facility] Number: Effective Repository Date:2018-02-06 01/17/2018 [place]: Primary [place]: [facility] [id number] [facility] [id number] [facility] licy Number: Repository [facility], Effective Date: [place] [address]Spw: ()
--- OUTSIDE RECORDS SUMMARY | 2019-01-30 01:52 | XMS RPT_ITS ---
:1940 Author Organization [employer] Address [address] [address] Phone Care Team Providers Name Role Phone Shahzad LYLE, Carmen Rodriguez Unavailable Reason for Visit Reason For Visit Description Start Date Postop - 1st visit Preliminary reason for visit data, not yet signed by the author as of lower back post Exploration of lumbar fusion posterior bilateral L4-L5 Removal of segmental fixation bilateral L4-L5 with TSRH 3D instrumentation Revision bilateral hemilaminectomy L1-L2 L2-L3 L3-L4 with partial facetectomies and foraminotomies L2 through L4 bilateral Posterolateral fusion L2 through L4 on 11/13/2018 Preliminary reason for visit data, not yet signed by the author as of Chief Complaint Chief Complaint Description Start Date lower back post Exploration of lumbar fusion posterior bilateral L4-L5 Removal of segmental fixation bilateral L4-L5 with TSRH 3D instrumentation Revision bilateral hemilaminectomy L1-L2 L2-L3 L3-L4 with partial facetectomies and foraminotomies L2 through L4 bilateral Posterolateral fusion L2 through L4 on 11/13/2018 Preliminary chief complaint data, not yet signed by the author as of Instructions Instruction Description Start Date Patient advised to follow-up with Primary Care Physician for BMI management. Plan of Care Type Date Detail Appointment 09:20 AM Carmen LYLE, [address] [facility] [address], [place], [address], Appointment 01:20 PM Carmen LYLE, [address] [facility] [address], [place], [address], Pending order Venous ultrasound right lower extremity Patient education \cps-[email or web address]\CPS_PtEducation\[facility]_ FALL_PREVENTION.pdf Medications Medication Instructions Start Stop Generic Name [facility] Provider Date Date PRAVACHOL 50mg one tablet / PRAVASTATIN [id number] Carmen M TABS at bedtime 24 SODIUM TABS [place] daily [employer] REPRESENTATIVE[employer] MANAGER LISINOPRIL 5 One tablet / LISINOPRIL 72439666683 Carmen M MG TABS daily 24 [place] [employer] REPRESENTATIVE[employer] MANAGER TYLENOL 325 Two tablets / ACETAMINOPHEN 75888630923 Carmen M MG TABS daily as needed [place] for pain [employer] REPRESENTATIVE[employer] MANAGER OXYCODONE HCL One tablet OXYCODONE HCL 27644276673 Carmen M 5 MG TABS every 6-8 hours [place] as needed for [employer] REPRESENTATIVE[employer]S MANAGER pain ALEVE 220 MG two tablets / NAPROXEN SODIUM 48604960140 Scot D TABS every eight 29 [place] DO hours as needed for pain ADULT ASPIRIN 1 tablet daily / ASPIRIN 63051247110 Kasia REGIMEN 81 MG 24 Hough [place] [employer] [facility] CARVEDILOL 1 tablet twice / CARVEDILOL 04883560789 Kasia 6.25 MG TABS daily 24 Hough [place] [employer] Conditions or Problems Problem Problem Onset Status Entry Provider Comment Standard Annotate Name Code Date Date Description Right leg 608933184 Active Carmen Rodriguez Pain in right pain (SNOMED CT) 11/27 11/27 [place] lower limb [employer] REPRESENTAT[employer] MANAGER S/P lumbar 25671519849 Active Carmen Rodriguez History of fusion 106 (SNOMED 11/27 11/[address]) [employer] REPRESENTATIVE[employer] MANAGER Spinal 94148437 Active Scot D Spinal stenosis stenosis of (SNOMED CT) 12/05 12/05 [place] DO of lumbar lumbar region region Spondylolis 98026025275 Active Scot D Lumbar thesis of 9102 12/05 12/05 [place] DO spondylolisthes lumbar (SNOMED CT) is region Neural 60142396642 Active Avni M Stenosis of L3-4 right, foraminal 9 (SNOMED 01/27 01/27 Luis CARDENAS intervertebral L5-S1 stenosis of CT) foramina bilaterally lumbar spine Spinal 04830710 Active Avni M Spinal stenosis L2-4 stenosis of (SNOMED CT) 01/27 01/27 Luis CARDENAS of lumbar lumbar region region DISH 46793830 Active Marley 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) S/P lumbar 39604462118 Active Marley History of Laminectomy fusion 106 (SNOMED 12/05 12/07 [place] lumbar fusion L4-5, CT) PA-C fusion L4-5 DDD 81726006 Active Marley 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 Vital Signs Date Name Value Unit Description BMI (Body Mass 31.12 kg/m2 Body Mass Index Index) [Ratio] Preliminary vital sign data, not yet signed by the author as of BP Diastolic 41 mm[Hg] blood pressure, diastolic Preliminary vital sign data, not yet signed by the author as of BP Systolic 87 mm[Hg] blood pressure, systolic Preliminary vital sign data, not yet signed by the author as of Heart Rate 69 /min pulse rate E&M Preliminary vital sign data, not yet signed by the author as of Height 170 cm height in centimeters E&M Preliminary vital sign data, not yet signed by the author as of Height 67 [in_us] height E&M Preliminary vital sign data, not yet signed by the author as of Weight Measured 90 kg weight in kilograms E&M Preliminary vital sign data, not yet signed by the author as of Weight Measured 198 [lb_av] weight E&M Preliminary vital sign data, not yet signed by the author as of Results Date Name Value Unit Range Flag Description Office Visit: Postop - 1st visit, Rm: 40 MEDS REVIEW Done Documentation of current medications (procedure) Preliminary observation data, not yet signed by the author as of Preliminary observation data, not yet signed by the author as of Clinical Summary: HMSPatientID OOP account number Procedures Code Procedure Name Date Entry Date CPT-96374 Physical Therapy CPT-69347 XR LUMBAR 2-3 VWS AP/LAT G8730 Pain assessment documented as positive - follow-up documented G8427 Current medications documented 1036F Tobacco screening was negative - non user G8417 BMI documented as above normal parameters - follow-up documented G8783 Blood pressure within normal parameters - no follow-up required 1100F Fallen more than twice or injured themselves from a fall documented 3288F Falls risk assessment documented 0518F Falls plan of care documented [id number] Patient Encounter Medications Administered No information available. Immunizations No information available. Advance Directives There may be information available, but it has not been provided by the sender. Assessments There may be information available, but it has not been provided by the sender. Review of Systems There may be information available, but it has not been provided by the sender. Family History There may be information available, but it has not been provided by the sender. History of Past Illness There may be information available, but it has not been provided by the sender. History of Present Illness There may be information available, but it has not been provided by the sender.
--- OUTSIDE RECORDS SUMMARY | 2019-01-30 01:52 | XMS RPT_ITS ---
:1940 Author Organization [employer] Address [address] [place] [address] Phone Care Team Providers Name Role Phone Avni Smith MD Unavailable Reason for Visit Reason For Visit Description Start Date Test Result Preliminary reason for visit data, not yet signed by the author as of lower back pain Preliminary reason for visit data, not yet signed by the author as of Chief Complaint Chief Complaint Description Start Date lower back pain Preliminary chief complaint data, not yet signed by the author as of Instructions Instruction Description Start Date Patient advised to follow-up with Primary Care Physician for BMI management. Plan of Care Type Date Detail Appointment 09:10 AM Avni Smith MD, [address] [facility], [address], [place], [address], Appointment 11:20 AM Marley Pennington PA-C, [address] [facility], [address], [place], [address], Medications Medication Instructions Start Stop Generic Name [facility] Provider Date Date ASPIRIN 81 MG take 1 tablet ASPIRIN 23575073779 Dia TABS once daily 4 Ramses [employer]ER CARVEDILOL take 1 tablet CARVEDILOL 06505906492 Dia 6.25 MG TABS twice daily 4 Ramses [employer] PRAVACHOL 40 take 2 tablets PRAVASTATIN 10943619621 Dia MG TABS once daily 4 SODIUM Ramses [employer]IND[employer] TENDER LISINOPRIL 20 take 1 tablet LISINOPRIL 48037230962 Dia MG TABS once daily 4 Erwinna [employer] WINDER TENDER Conditions or Problems Problem Problem Onset Status Entry Provider Comment Standard Annotate Name Code Date Date Description Neural 62693859356 Active Avni M Stenosis of L3-4 right, foraminal 9 (SNOMED 01/27 01/27 Luis CARDENAS intervertebral L5-S1 stenosis of CT) foramina bilaterally lumbar spine Spinal 77674534 Active Avni M Spinal stenosis L2-4 stenosis of (SNOMED CT) 01/27 01/27 Luis CARDENAS of lumbar lumbar region region DISH 94426032 Active Marley 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) S/P lumbar 71683320001 Active Marley History of Laminectomy fusion 106 (SNOMED 12/05 12/07 [place] lumbar fusion L4-5, fusion CT) PA-C L4-5 DDD 86160376 Active Marley Degeneration of (degenerati (SNOMED CT) 12/05 12/07 [place] lumbar ve disc PA-C intervertebral disease), disc lumbar Radiculopat M54.16 Active Roosevelt M Radiculopathy, hy lumbar (ICD-10-CM) 11/17 11/17 Gradisar lumbar region region Allergies, Adverse Reactions, Alerts Allergy Name Reaction Start Date Severity Status Provider Description ULORIC makes legs feel Moderate Active Marley [place] heavy PA-C Social History No information available. Vital Signs Date Name Value Unit Description BMI (Body Mass 33.01 kg/m2 Body Mass Index Index) [Ratio] Preliminary vital sign data, not yet signed by the author as of BP Diastolic 61 mm[Hg] blood pressure, diastolic Preliminary vital sign data, not yet signed by the author as of BP Systolic 112 mm[Hg] blood pressure, systolic Preliminary vital sign data, not yet signed by the author as of Heart Rate 61 /min pulse rate E&M Preliminary vital sign data, not yet signed by the author as of Height 67 [in_us] height E&M Preliminary vital sign data, not yet signed by the author as of Height 170 cm height in centimeters E&M Preliminary vital sign data, not yet signed by the author as of Weight Measured 210 [lb_av] weight E&M Preliminary vital sign data, not yet signed by the author as of Weight Measured 95 kg weight in kilograms E&M Preliminary vital sign data, not yet signed by the author as of Results Date Name Value Unit Range Flag Description Office Visit: Test Result, Rm: 23 MEDS REVIEW Done Documentation of current medications (procedure) Preliminary observation data, not yet signed by the author as of Preliminary observation data, not yet signed by the author as of Clinical Summary: HMSPatientID OOP account number Procedures Code Procedure Name Date Entry Date L0650 EXOS FORM 637 (EXOS) G8730 Pain assessment documented as positive - follow-up documented G8427 Current medications documented 1036F Tobacco screening was negative - non user G8417 BMI documented as above normal parameters - follow-up documented G8783 Blood pressure within normal parameters - no follow-up required [facility]-[id number] Patient Encounter Medications Administered No information available. [...]
== END ==
PROVIDERS: Family Provider Family Medicine Geriatric Medicine; PCP Family Medicine Geriatric Medicine; Referring Provider Nurse Practitioner; Visit Provider Nurse Practitioner
DX: M79.604 Pain in right leg (principal); Z98.1 Arthrodesis status
CPT/HCPCS: 93971

== ENCOUNTER → 2018-11-28 16:15 | Outpatient (CLI) | payer MEDICARE, SELFPAY ==
[2018-11-28 17:25] LABS: Absolute Lymphocyte Count 1.69 X10^3/ul (0.83-4.51); Absolute Neutrophil Count 4.5 X10^3/uL (2.0-7.7); Basophil# 0.05 X10^3/uL; Basophil% 0.7 % (0-1); Eosinophils% 2.8 % (0-5); Hematocrit 28.6 % (40-54); Lymphocyte # 1.69 X10^3/ul (4.0); Lymphocyte % 23.7 % (19-41); Mean Corp Hgb Conc 31.5 g/gl (32-36); Mean Corpuscular Hgb 28.8 pg (27.0-32.0); Mean Corpuscular Volume 91.7 fL (80-94); Mean Platelet Vol. 8.7 fl (6.2-12.0); Monocyte# 0.68 X10^3/uL; Monocyte% 9.5 % (0-10); Neutrophil % 63.2 % (47-70); Platelet Count 382 K/mm3 (150-450); RBC Distribution Width CV 14.2 % (11.6-14.6); RBC Distribution Width SD 46.7 fl (35.1-43.9); Red Blood Count 3.12 M/mm3 (4.6-6.2); White Blood Count 7.1 K/mm3 (4.4-11.0)
[2018-11-28 17:32] LABS: POSITIVE COUNT NO; POSITIVE DIFFERENTIAL NO; POSITIVE MORPHOLOGY NO
[2018-11-28 17:55] LABS: ALB/GLOB Ratio 0.7 RATIO (0.9-2.4); AST(SGOT) 23 U/L (15-37); Alanine Aminotransfer ALT/SGPT 26 U/L (16-61); Albumin, Serum 2.8 g/dL (3.2-5.0); Alkaline Phosphatase 102 U/L (45-117); Anion Gap 10 (5-15); BUN 12 mg/dL (7-18); BUN/Creat Ratio 8.9 RATIO (10-20); Calcium,Total 8.4 mg/dL (8.5-10.1); Chloride 107 mmol/L (98-107); Cholesterol 106 mg/dL (200); Creatinine, Serum 1.35 mg/dL (0.70-1.30); EST Glomerular Filtration Rate 55 mL/min (>60); Est Glom Filt Rate - Afr Amer 66 mL/min (>60); Globulin 3.8 g/dL (2.2-4.2); Glucose 105 mg/dL (74-106); High Density Lipoprotein 29 mg/dL; Potassium 4.2 mmol/L (3.5-5.1); Protein, Total 6.6 g/dL (6.4-8.2); Sodium Level 141 mmol/L (136-145); Thyroid Stim Hormone (TSH) 1.01 uIU/mL (0.358-3.74); Triglycerides 137 mg/dL; Uric Acid 8.2 mg/dL (3.5-7.2); Very Low Density Lipoprotein 27 mg/dL (5-40)
[2018-11-28 18:15] LABS: Vitamin D,25 Hydroxy 17.2 ng/mL (29.95-100.01)
--- OUTSIDE RECORDS SUMMARY | 2019-01-30 22:28 | XMS RPT_ITS ---
[...] Unavailable Miriam, Blaine Chi Referring Unavailable Miriam, Baline Chi Primary Care Unavailable PROBLEMS PROBLEMS DATE TYPE CONDITION / CODE ATTENDING STATUS SOURCE 10/13/2018 Unknown Z01.810 - Encounter Miriam, Blaine Chi Active [place] for preprocedural [facility] Hospital examination / Repository Z01.810(ICD-10) 02/06/2018 Unknown Z01.818 - Encounter Miriam, Blaine Chi Active [place] for other [facility] preprocedural Hospital examination / Repository Z01.818(ICD-10) 01/17/2018 Admitting Spinal stenosis, Luis, Active [employer] 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 Rep #: [id number] : 1940 78 From: Dell Aguilar MD [...] 11/28/18 1630 Date Dell Aguilar MD CC: FISCAL SERVICES MANAGER-C Britton Canela; Blaine Pineda MD Date Dictated: 11/27/18 1401 Date Transcribed: 11/28/18 1630 Brush Worker: Signed CBC W/DIFF, AUTOMATED Collected: 11/28/2018 Status: F Source: [place] 4:15 PM REPOSITORY TYPE CODE TESTS RESULT OUT OF [...] Lymph 1.69 Performed By: #### L100.0100 #### [facility] [place], [place], [address] COMPREHENSIVE METABOLIC Collected: 11/28/2018 Status: F Source: [place] ROONEY 4:15 PM REPOSITORY TYPE CODE TESTS RESULT OUT OF [...] By: #### L500.4050, L500.4100, L501.1400, L501.9520 #### [facility] [address] [place], [place], [address] LIPID PROFILE Collected: 11/28/2018 Status: F Source: [place] 4:15 PM REPOSITORY TYPE CODE TESTS RESULT OUT OF [...] By: #### L500.4050, L500.4100, L501.1400, L501.9520 #### [facility] [address] [place], [place], [address] URIC ACID Collected: 11/28/2018 Status: F Source: [place] 4:15 PM REPOSITORY TYPE CODE TESTS RESULT OUT OF RANGE REFERENCE UNITS LAB L501.1400 3.5-7.2 mg/dL High URIC 8.2 Result Comment: The drugs N-Acetylcysteine and Metamizole may falsely depress this assay. Performed By: #### L500.4050, L500.4100, L501.1400, L501.9520 #### [facility] [address] [place], [place], [address] THYROID STIM HORMONE Collected: 11/28/2018 Status: F Source: [place] (TSH) 4:15 PM REPOSITORY TYPE CODE TESTS RESULT OUT OF RANGE REFERENCE UNITS LAB L501.9520 0.358-3.74 uIU/mL Normal TSH 1.01 Performed By: #### L500.4050, L500.4100, L501.1400, L501.9520 #### [facility] [address] [place], [address] VITAMIN D,25 HYDROXY Collected: 11/28/2018 Status: F Source: [place] 4:15 PM REPOSITORY TYPE CODE TESTS RESULT OUT OF REFERENCE UNITS RANGE LAB L506.1000 29.95-100.01 ng/mL Low Vitamin D 17.2 25-OH Result Comment: Vitamin D 25(OH) Status Range Deficiency <20 ng/mL (50nmol/L) Insuffciency 20 - 30 ng/mL (50 - 75 nmol/L) Sufficiency 30 - 100 ng/mL (75 - 250 nmol/L) Toxicity >100 ng/mL (>250 nmol/L) Performed By: #### L506.1000 #### [facility] [address] [place], [place], [address] CBC-COMPLETE BLOOD CNT Collected: 10/13/2018 Status: F Source: [place] NO DIFF 12:48 PM REPOSITORY Order Comment: PT REFUSED INR INSURANCE [...] MPV 9.3 Performed By: #### L100.0500 #### [facility] [address] [place], [address] BASIC METABOLIC Collected: 10/13/2018 Status: F Source: [place] ESCOBAR ([facility]) 12:48 PM REPOSITORY Order Comment: PT REFUSED INR INSURANCE [...] GAP 5 Performed By: #### L500.2500 #### [facility] [place], [address] COMPREHENSIVE METABOLIC Collected: 05/29/2018 Status: F Source: [place] ROONEY 1:31 PM REPOSITORY TYPE CODE TESTS RESULT OUT OF [...] Performed By: #### L500.4050, L501.1400, L501.9520 #### [facility] [address] [place], [place], [address] URIC ACID Collected: 05/29/2018 Status: F Source: [place] 1:31 PM REPOSITORY TYPE CODE TESTS RESULT OUT OF RANGE REFERENCE UNITS LAB L501.1400 3.5-7.2 mg/dL High URIC 8.0 Result Comment: The drugs N-Acetylcysteine and Metamizole may falsely depress this assay. Performed By: #### L500.4050, L501.1400, L501.9520 #### [facility] [address] [facility] [place], [address] THYROID STIM HORMONE Collected: 05/29/2018 Status: F Source: [place] (TSH) 1:31 PM REPOSITORY TYPE CODE TESTS RESULT OUT OF RANGE REFERENCE UNITS LAB L501.9520 0.358-3.74 uIU/mL Normal TSH 2.43 Performed By: #### L500.4050, L501.1400, L501.9520 #### [facility] [address] [place], [address] VITAMIN D,25 HYDROXY Collected: 05/29/2018 Status: F Source: [place] 1:31 PM REPOSITORY TYPE CODE TESTS RESULT OUT OF REFERENCE UNITS RANGE LAB L506.1000 29.95-100.01 ng/mL Low Vitamin D 26.1 25-OH Result Comment: Vitamin D 25(OH) Status Range Deficiency <20 ng/mL (50nmol/L) Insuffciency 20 - 30 ng/mL (50 - 75 nmol/L) Sufficiency 30 - 100 ng/mL (75 - 250 nmol/L) Toxicity >100 ng/mL (>250 nmol/L) Performed By: #### L506.1000 #### [facility] [address] [place], [address] CBC W/DIFF, AUTOMATED Collected: 05/29/2018 Status: F Source: [place] 1:31 PM REPOSITORY TYPE CODE TESTS RESULT OUT OF [...] Lymph 1.88 Performed By: #### L100.0100 #### [facility] [address] [place], [address] BASIC METABOLIC Collected: 03/02/2018 Status: F Source: T[place] PROFILE ([facility]) 2:12 PM REPOSITORY TYPE CODE TESTS RESULT OUT OF [...] 10 Performed By: #### L500.2500, L501.1400 #### [facility] [address] [facility], [address] URIC ACID Collected: 03/02/2018 Status: F Source: [place] 2:12 PM REPOSITORY TYPE CODE TESTS RESULT OUT OF RANGE REFERENCE UNITS LAB L501.1400 3.5-7.2 mg/dL High URIC 8.3 Result Comment: The drugs N-Acetylcysteine and Metamizole may falsely depress this assay. Performed By: #### L500.2500, L501.1400 #### [facility] [address] [place], [address] CBC W/DIFF, AUTOMATED Collected: 03/02/2018 Status: F Source: [place] 2:12 PM REPOSITORY TYPE CODE TESTS RESULT OUT OF [...] Lymph 2.11 Performed By: #### L100.0100 #### [facility] [address] [place], [address] CBC W/DIFF, AUTOMATED Collected: 02/06/2018 Status: F Source: [place] 11:30 AM REPOSITORY TYPE CODE TESTS RESULT OUT OF [...] Lymph 1.88 Performed By: #### L100.0100 #### [facility] [address] [place], [address] PROTHROMBIN TIME W/INR Collected: 02/06/2018 Status: F Source: [place] 11:30 AM REPOSITORY TYPE CODE TESTS RESULT OUT OF RANGE REFERENCE UNITS LAB L300.4150 11.7-14.9 SECONDS Normal PROTIME 14.5 LAB L300.4200 Normal INR 1.1 Performed By: #### L300.3900 #### [facility] [address] [place], [address] BASIC METABOLIC Collected: 02/06/2018 Status: F Source: [place] PROFILE (BMP) 11:30 AM REPOSITORY TYPE CODE TESTS RESULT OUT OF [...] GAP 7 Performed By: #### L500.2500 #### [facility] [address] [place], [address] CT SPINE LUMBAR W/ Observed: 01/17/2018 Status: F Source: iRule CONTRAST 12:47 PM SYSTEM REPOSITORY Patient Name: FORTINO ROGERS Jr CT Exam Date/Time 01/17/2018 10:22:[address] Spine Lumbar w/ Contrast Ordering Physician KAYA VALENTE NICOLE Accession Number [id number] CPT4 Codes 91304 () Reason For Exam DDD, radiculopathy lumbar [...] SPECIAL ANGIOGRAPHY Observed: 01/17/2018 Status: F Source: iRule PROCEDURE 12:47 PM SYSTEM REPOSITORY Patient Name: FORTINO ROGERS Jr Special Procedures Exam Date/Time 01/17/2018 10:01:44 EDT Exam XA Special Angiography Procedure Ordering Physician KAYA VALENTE NICOLE Accession Number [id number] Reason For Exam Lumbar myelogram / diffuse [...] PLATELET COUNT Collected: 01/17/2018 Status: F Source: iRule 8:27 AM SYSTEM REPOSITORY TYPE CODE TESTS RESULT OUT OF REFERENCE UNITS RANGE LAB PLT 140-440 10*3/uL Platelet 171 Performed By: #### PLTCT, PT #### The performing lab is in the report. PROTHROMBIN TIME Collected: 01/17/2018 Status: F Source: iRule 8:27 AM SYSTEM REPOSITORY TYPE CODE TESTS [...] SEVERITY SOURCE 05/01/2014 Drug No Known Unknown [facility] Allergy/4160 Allergies/F00 [facility] [address](SNOMED 9916518(RXNOR Repository CT) M) ENCOUNTERS ENCOUNTERS ADMIT/DISCHARGE ACCOUNT NUMBER ADMITTING ENCOUNTER LOCATION SOURCE CLASS 11/28/2018 [id number] Ambulatory [facility] ding:POLAB3 Repository 11/27/2018 [id number] Ambulatory [facility] ding:[facility] Repository 10/13/2018 [id number] Ambulatory [facility] ding:LAB Repository 05/29/2018 [id number] Ambulatory [facility] ding:POLAB3 Repository 03/02/2018 [id number] Ambulatory [facility] ding:POLAB3 Repository 02/06/2018 [id number] [facility] ding:POLAB3 Repository 01/17/2018 [id number] [address]ulatory [address] [place] [address]: System [id number]: Repository [id number] PAYERS PAYERS ENCOUNTER GUARANTOR PAYER SUBSCRIBER SOURCE 11/28/2018 FORTINO ROGERS Primary FORTINO Ramsey [id number] Insurance:[employer] JrEliud: Community [place] MEDICARE[place] [address], [place] Number: Repository [id number]: 419 [id number] [phone] () Date:8048-11-44IB [address] [place] [address]JX: 11/28/2018 Secondary NOT GIVENUNK [place] Insurance:SELF PAY [facility] Number: Effective Repository Date:2018-11-28 11/27/2018 FORTINO ROGERS Primary FORTINO [place] [id number] Insurance:[employer] CARE Jr.: [id number]: Repository [address]Nrf: 419 [id number] [phone] (HP) Date:4773-67-25YZ [address] [place] [address]CL: 11/27/2018 Secondary NOT GIVENUNK [place] Insurance:SELF PAY [facility] Number: Effective Repository Date:2018-11-27 10/13/2018 FORTINO ROGERS Primary FORTINO [place] [id number] Insurance:[employer] JrEliud: [place] MEDICAREPolicy [address], [place] Number: Repository [id number]: (419 [id number] [phone] (HP) Date:5995-16-10ZO [address] [address]JL: 10/13/2018 Secondary NOT GIVENUNK [place] Insurance:SELF PAY [facility] Number: Effective Repository Date:2018-10-13 05/29/2018 FORTINO Penaloza [place] Primary FORTINO ROGERS [place] Jr.[id number] Insurance:[employer] CARE Jr.: [place] MEDICAREPolicy [id number] [place] Number[facility] Repository [id number]: (419 [id number] [phone] (HP) Date:6540-13-49KW [address] [place] [address]TV: 05/29/2018 Secondary NOT GIVENUNK [place] Insurance:SELF PAY [facility] Number: Effective Repository Date:2018-05-29 03/02/2018 FORTINO Penaloza [facility] FORTINO ROGERS [place] Jr.[id number] Insurance:[employer] CARE Jr.: [place] MEDICAREPolicy [id number] [place] Number[facility] Repository [id number]: (419 [id number] [phone] (HP) Date:9878-56-38LX [address] [place] [address]UY: 03/02/2018 Secondary NOT GIVENUNK [place] Insurance:SELF PAY [facility] Number: Effective Repository Date:2018-03-02 02/06/2018 FORTINO Penaloza [facility] FORTINO ROGERS [place] Jr.[id number] Insurance:[employer] CARE Jr.: [id number] [id number]: (419 [id number] [phone] (HP) Date:5765-37-82PK [address], [place] [address]LN: 02/06/2018 Secondary NOT GIVENUNK [place] Insurance:SELF PAY [facility]: Effective Repository Date:2018-02-06 01/17/2018 [place]: Primary [place]: [facility] [id number] [facility] [id number] [facility] licy Number: Repository [facility], Effective Date: [place] [address]Sfg: ()
== END ==
PROVIDERS: Family Provider Family Medicine Geriatric Medicine; PCP Family Medicine Geriatric Medicine; Visit Provider Family Medicine Geriatric Medicine
DX: E78.5 Hyperlipidemia, unspecified (principal); M10.9 Gout, unspecified; E55.9 Vitamin D deficiency, unspecified; R53.83 Other fatigue
CPT/HCPCS: 36415; 80053; 80061; 82306; 84443; 84550; 85025

== ENCOUNTER → 2018-12-26 12:40 | Outpatient (CLI) | payer MEDICARE, SELFPAY ==
[2018-12-26 13:50] LABS: Absolute Lymphocyte Count 1.92 X10^3/ul (0.83-4.51); Absolute Neutrophil Count 3.6 X10^3/uL (2.0-7.7); Basophil# 0.05 X10^3/uL; Basophil% 0.8 % (0-1); Eosinophil# 0.24 X10^3/uL; Eosinophils% 3.8 % (0-5); Hemoglobin 9.8 g/dl (13.0-16.5); Lymphocyte # 1.92 X10^3/ul (4.0); Lymphocyte % 30.1 % (19-41); Mean Corp Hgb Conc 31.6 g/gl (32-36); Mean Corpuscular Hgb 27.2 pg (27.0-32.0); Mean Corpuscular Volume 86.1 fL (80-94); Mean Platelet Vol. 8.9 fl (6.2-12.0); Monocyte# 0.53 X10^3/uL; Monocyte% 8.3 % (0-10); Neutrophil # 3.62 X10^3/uL (2.7-7.7); Neutrophil % 56.8 % (47-70); POSITIVE COUNT NO; POSITIVE DIFFERENTIAL NO; POSITIVE MORPHOLOGY NO; Platelet Count 215 K/mm3 (150-450); RBC Distribution Width CV 15.1 % (11.6-14.6); RBC Distribution Width SD 47.6 fl (35.1-43.9); White Blood Count 6.4 K/mm3 (4.4-11.0)
== END ==
PROVIDERS: Family Provider Family Medicine Geriatric Medicine; PCP Family Medicine Geriatric Medicine; Referring Provider Family Medicine Geriatric Medicine; Visit Provider Family Medicine Geriatric Medicine
DX: D64.9 Anemia, unspecified (principal)
CPT/HCPCS: 36415; 85025

== ENCOUNTER → 2019-01-23 17:09 | Outpatient (CLI) | payer MEDICARE, SELFPAY ==
--- NOTE | 2019-01-23 17:12 | RAD_ITS ---
STUDY: X-RAY - LEFT SHOULDER REASON FOR EXAM: Bilateral shoulder pain. TECHNIQUE: 2 view(s) of the shoulder. COMPARISON: None. FINDINGS: Normal glenohumeral articulation. There is acromioclavicular arthrosis. Normal acromion. Normal humeral head and visualized proximal humerus. The soft tissue structures are unremarkable. Normal visualized pulmonary apex. RAD/Shoulder min 2 Views IMPRESSION: Acromioclavicular arthrosis. Electronically Signed: Jaspreet Yi MD at 15:51 EDT Tel , Service support ,
--- NOTE | 2019-01-23 17:25 | RAD_ITS ---
STUDY: X-RAY - RIGHT SHOULDER REASON FOR EXAM: Bilateral shoulder pain. TECHNIQUE: 2 view(s) of the shoulder. COMPARISON: None. FINDINGS: There is mild glenohumeral arthrosis with mild joint space narrowing. Normal acromioclavicular joint. Normal acromion. There is an anchor in the humeral head. There is chondrocalcinosis of the humeral head. Normal visualized pulmonary apex. RAD/Shoulder min 2 Views IMPRESSION: Mild glenohumeral arthrosis. Chondrocalcinosis. Electronically Signed: Jaspreet Yi MD at 15:50 EDT Tel , Service support ,
== END ==
PROVIDERS: Family Provider Family Medicine Geriatric Medicine; PCP Family Medicine Geriatric Medicine; Referring Provider Family Medicine Geriatric Medicine; Visit Provider Family Medicine Geriatric Medicine
DX: M25.512 Pain in left shoulder (principal); M25.511 Pain in right shoulder
CPT/HCPCS: 73030

== ENCOUNTER → 2019-05-16 16:08 | Outpatient (CLI) | payer MEDICARE, SELFPAY ==
[2019-05-16 18:12] LABS: Absolute Lymphocyte Count 1.98 X10^3/ul (0.83-4.51); Absolute Neutrophil Count 3.7 X10^3/uL (2.0-7.7); Basophil# 0.03 X10^3/uL; Basophil% 0.4 % (0-1); Eosinophil# 0.16 X10^3/uL; Eosinophils% 2.4 % (0-5); Hematocrit 36.5 % (40-54); Hemoglobin 11.9 g/dl (13.0-16.5); Lymphocyte # 1.98 X10^3/ul (4.0); Lymphocyte % 29.4 % (19-41); Mean Corp Hgb Conc 32.6 g/gl (32-36); Mean Corpuscular Hgb 28.5 pg (27.0-32.0); Mean Corpuscular Volume 87.5 fL (80-94); Mean Platelet Vol. 9.8 fl (6.2-12.0); Monocyte# 0.84 X10^3/uL; Monocyte% 12.5 % (0-10); Neutrophil # 3.71 X10^3/uL (2.7-7.7); Platelet Count 175 K/mm3 (150-450); RBC Distribution Width CV 14.9 % (11.6-14.6); RBC Distribution Width SD 47.9 fl (35.1-43.9); Red Blood Count 4.17 M/mm3 (4.6-6.2); White Blood Count 6.7 K/mm3 (4.4-11.0)
[2019-05-16 18:17] LABS: POSITIVE COUNT NO; POSITIVE DIFFERENTIAL NO; POSITIVE MORPHOLOGY NO
[2019-05-16 18:29] LABS: Anion Gap 7 (5-15); BUN 17 mg/dL (7-18); BUN/Creat Ratio 12.2 RATIO (10-20); Calcium,Total 8.4 mg/dL (8.5-10.1); Chloride 109 mmol/L (98-107); Creatinine, Serum 1.39 mg/dL (0.70-1.30); EST Glomerular Filtration Rate 53 mL/min (>60); Erythrocyte Sedimentation Rate 35 mm/hr (0-20); Est Glom Filt Rate - Afr Amer 64 mL/min (>60); Glucose 90 mg/dL (74-106); Potassium 4.5 mmol/L (3.5-5.1); Sodium Level 141 mmol/L (136-145); Uric Acid 7.6 mg/dL (3.5-7.2)
== END ==
PROVIDERS: Family Provider Family Medicine Geriatric Medicine; PCP Family Medicine Geriatric Medicine; Visit Provider Family Medicine Geriatric Medicine
DX: M10.9 Gout, unspecified (principal)
CPT/HCPCS: 36415; 80048; 84550; 85025; 85652; 86140

== ENCOUNTER → 2019-05-31 08:49 | Outpatient (CLI) | payer MEDICARE, SELFPAY ==
[2019-05-31 12:50] LABS: Absolute Lymphocyte Count 2.36 X10^3/uL (0.83-4.51); Absolute Neutrophil Count 5.4 X10^3/uL (2.0-7.7); Basophil# 0.02 X10^3/uL; Basophil% 0.2 % (0-1); Eosinophil# 0.07 X10^3/uL; Eosinophils% 0.8 % (0-5); Hematocrit 39.3 % (40-54); Hemoglobin 12.9 g/dL (13.0-16.5); Lymphocyte # 2.36 X10^3/ul (4.0); Lymphocyte % 26.6 % (19-41); Mean Corp Hgb Conc 32.8 g/dL (32-36); Mean Corpuscular Hgb 29.7 pg (27.0-32.0); Mean Corpuscular Volume 90.6 fL (80-94); Mean Platelet Vol. 9.9 fl (6.2-12.0); Monocyte# 0.94 X10^3/uL; Monocyte% 10.6 % (0-10); NRBC Flagged by Analyzer 0 % (0-5); Neutrophil # 5.44 X10^3/uL (2.7-7.7); Neutrophil % 61.5 % (47-70); Platelet Count 163 K/mm3 (150-450); RBC Distribution Width CV 15.7 % (11.6-14.6); RBC Distribution Width SD 51.8 fl (35.1-43.9); Red Blood Count 4.34 M/mm3 (4.6-6.2); White Blood Count 8.9 K/mm3 (4.4-11.0)
[2019-05-31 13:06] LABS: Vitamin D,25 Hydroxy 18.9 ng/mL (29.95-100.01)
[2019-05-31 13:37] LABS: ALB/GLOB Ratio 0.8 RATIO (0.9-2.4); AST(SGOT) 12 U/L (15-37); Alanine Aminotransfer ALT/SGPT 27 U/L (16-61); Albumin, Serum 3.1 g/dL (3.2-5.0); Alkaline Phosphatase 91 U/L (45-117); Anion Gap 6 (5-15); BUN 23 mg/dL (7-18); BUN/Creat Ratio 16.4 RATIO (10-20); Calcium,Total 8.3 mg/dL (8.5-10.1); Chloride 110 mmol/L (98-107); EST Glomerular Filtration Rate 52 mL/min (>60); Est Glom Filt Rate - Afr Amer 63 mL/min (>60); Globulin 3.7 g/dL (2.2-4.2); Glucose 99 mg/dL (74-106); Potassium 4.5 mmol/L (3.5-5.1); Protein, Total 6.8 g/dL (6.4-8.2); Sodium Level 138 mmol/L (136-145); Thyroid Stim Hormone (TSH) 2.23 uIU/mL (0.358-3.74)
== END ==
PROVIDERS: Family Provider Family Medicine Geriatric Medicine; PCP Family Medicine Geriatric Medicine; Visit Provider Family Medicine Geriatric Medicine
DX: I10 Essential (primary) hypertension (principal); E55.9 Vitamin D deficiency, unspecified; M10.9 Gout, unspecified
CPT/HCPCS: 36415; 80053; 82306; 84443; 84550; 85025

== ENCOUNTER → 2019-06-25 11:33 | Outpatient (CLI) | payer MEDICARE, SELFPAY ==
[2019-06-25 12:40] LABS: Absolute Lymphocyte Count 2.04 X10^3/uL (0.83-4.51); Basophil# 0.02 X10^3/uL; Basophil% 0.3 % (0-1); Eosinophil# 0.06 X10^3/uL; Eosinophils% 0.8 % (0-5); Hematocrit 37.6 % (40-54); Hemoglobin 12.5 g/dL (13.0-16.5); Lymphocyte # 2.04 X10^3/ul (4.0); Lymphocyte % 25.9 % (19-41); Mean Corp Hgb Conc 33.2 g/dL (32-36); Mean Corpuscular Hgb 30.1 pg (27.0-32.0); Mean Corpuscular Volume 90.6 fL (80-94); Mean Platelet Vol. 9.3 fl (6.2-12.0); Monocyte# 0.73 X10^3/uL; Monocyte% 9.3 % (0-10); NRBC Flagged by Analyzer 0 % (0-5); Neutrophil % 63.3 % (47-70); Platelet Count 141 K/mm3 (150-450); RBC Distribution Width CV 15.2 % (11.6-14.6); RBC Distribution Width SD 50.6 fl (35.1-43.9); Red Blood Count 4.15 M/mm3 (4.6-6.2); White Blood Count 7.9 K/mm3 (4.4-11.0)
[2019-06-25 12:53] LABS: Ferritin 63 ng/mL (26-388); Iron 67 ug/dL (65-175); Iron Binding Capacity,Total 269 ug/dL (250-450); PERCENT IRON SATURATION 24.9 % (15.0-55.0)
== END ==
PROVIDERS: Family Provider Family Medicine Geriatric Medicine; PCP Family Medicine Geriatric Medicine; Visit Provider Internal Medicine Cardiovascular Disease
DX: D50.0 Iron deficiency anemia secondary to blood loss (chronic) (principal)
CPT/HCPCS: 36415; 82728; 83540; 83550; 85025

== ENCOUNTER → 2019-11-29 13:11 | Outpatient (CLI) | payer MEDICARE, SELFPAY ==
[2019-11-29 17:01] LABS: Absolute Neutrophil Count 3.4 X10^3/uL (2.0-7.7); Basophil# 0.05 X10^3/uL; Basophil% 0.8 % (0-1); Eosinophil# 0.17 X10^3/uL; Eosinophils% 2.7 % (0-5); Hematocrit 38.8 % (40-54); Hemoglobin 12.3 g/dL (13.0-16.5); Lymphocyte % 31.4 % (19-41); Mean Corp Hgb Conc 31.7 g/dL (32-36); Mean Corpuscular Hgb 29.3 pg (27.0-32.0); Mean Corpuscular Volume 92.4 fL (80-94); Mean Platelet Vol. 10.3 fl (6.2-12.0); Monocyte# 0.69 X10^3/uL; Monocyte% 10.8 % (0-10); NRBC Flagged by Analyzer 0 % (0-5); Neutrophil # 3.43 X10^3/uL (2.7-7.7); Platelet Count 161 K/mm3 (150-450); RBC Distribution Width CV 14.2 % (11.6-14.6); RBC Distribution Width SD 48.3 fl (35.1-43.9); White Blood Count 6.4 K/mm3 (4.4-11.0)
[2019-11-29 17:25] LABS: AST(SGOT) 23 U/L (15-37); Alanine Aminotransfer ALT/SGPT 23 U/L (16-61); Albumin, Serum 3.4 g/dL (3.2-5.0); Alkaline Phosphatase 89 U/L (45-117); Anion Gap 5 (5-15); BUN 19 mg/dL (7-18); BUN/Creat Ratio 13.5 RATIO (10-20); Calcium,Total 8.6 mg/dL (8.5-10.1); Chloride 109 mmol/L (98-107); Creatinine, Serum 1.41 mg/dL (0.70-1.30); EST Glomerular Filtration Rate 52 mL/min (>60); Est Glom Filt Rate - Afr Amer 63 mL/min (>60); Globulin 3.5 g/dL (2.2-4.2); Glucose 81 mg/dL (74-106); Potassium 4.2 mmol/L (3.5-5.1); Protein, Total 6.9 g/dL (6.4-8.2); Sodium Level 141 mmol/L (136-145); Thyroid Stim Hormone (TSH) 2.34 uIU/mL (0.358-3.74); Uric Acid 8.1 mg/dL (3.5-7.2)
[2019-11-29 17:28] LABS: Vitamin D,25 Hydroxy 18.8 ng/mL (29.95-100.01)
== END ==
LOC: POLAB3 13:11
PROVIDERS: PCP Family Medicine Geriatric Medicine; Visit Provider Family Medicine Geriatric Medicine
DX: E55.9 Vitamin D deficiency, unspecified (principal); I10 Essential (primary) hypertension; M10.9 Gout, unspecified
CPT/HCPCS: 36415; 80053; 82306; 84443; 84550; 85025

== ENCOUNTER → 2020-05-06 14:05 | Outpatient (CLI) | payer MEDICARE, SELFPAY ==
--- NOTE | 2020-05-06 14:33 | RAD_ITS ---
STUDY: X-RAY - RIGHT HAND REASON FOR EXAM: Male, 79 years old. BILAT HAND PAIN. RT HAND PAIN GREATER THAN LT. HX GOUT IN RT HAND TECHNIQUE: 3 view(s) of the hand. COMPARISON: None. FINDINGS: There is joint space narrowing of the radiocarpal articulation consistent with degenerative arthrosis. There are degenerative changes of the distal radioulnar articulation. Normal visualized carpal bones. Normal carpal articulations Normal carpometacarpal articulation of the thumb. Normal second through fifth carpometacarpal joints. There are old fractures of the fourth and fifth metacarpals. There are mild degenerative changes of the first metacarpophalangeal joint. There are severe hypertrophic degenerative changes of the first interphalangeal joint. There are mild degenerative changes of joint space narrowing of the second and third metacarpophalangeal joints. There mild degenerative changes of the second through fifth DIP joints. Normal phalanges of the second through fifth fingers. The soft tissue structures are unremarkable. RAD/Hand Min 3 Views IMPRESSION: Degenerative joint disease of the hand and wrist, as described above. Electronically Signed: Kaz Stinson MD at 21:17 EDT , Service support ,
--- NOTE | 2020-05-06 14:33 | RAD_ITS ---
STUDY: X-RAY - LEFT HAND REASON FOR EXAM: Male, 79 years old. BILAT HAND PAIN. RT HAND PAIN GREATER THAN LT. HX GOUT IN RT HAND TECHNIQUE: 3 view(s) of the hand. COMPARISON: Previous study 09/13/2013 FINDINGS: There is joint space narrowing of the radiocarpal articulation consistent with degenerative arthrosis. Normal distal radioulnar joint. Normal visualized carpal bones. Normal carpal articulations There are degenerative changes of the first metacarpal greater multangular joint. Normal second through fifth carpometacarpal joints. Normal metacarpi. There are mild degenerative changes of the first metacarpophalangeal joint. There are degenerative changes of the first interphalangeal joint. There are hypertrophic degenerative changes of the base of the first distal phalanx. There are mild degenerative changes of the third metacarpophalangeal joint. There are degenerative changes of the third DIP joint. Normal phalanges of the second through fifth fingers. There are wispy calcifications in the region of the triradiate cartilage. RAD/Hand Min 3 Views IMPRESSION: Degenerative changes of the left hand and wrist as detailed above. There are wispy calcifications of the region of the triradiate cartilage. 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 Electronically Signed: Kaz Stinson MD at 21:19 EDT , Service support ,
[2020-05-06 17:11] LABS: Absolute Lymphocyte Count 2.07 X10^3/uL (0.83-4.51); Absolute Neutrophil Count 3.2 X10^3/uL (2.0-7.7); Basophil# 0.04 X10^3/uL; Basophil% 0.6 % (0-1); Eosinophils% 3.2 % (0-5); Hematocrit 35.1 % (40-54); Hemoglobin 11.1 g/dL (13.0-16.5); Lymphocyte # 2.07 X10^3/ul (4.0); Lymphocyte % 33.2 % (19-41); Mean Corp Hgb Conc 31.6 g/dL (32-36); Mean Corpuscular Hgb 28.8 pg (27.0-32.0); Mean Corpuscular Volume 91.2 fL (80-94); Mean Platelet Vol. 10.1 fl (6.2-12.0); Monocyte# 0.68 X10^3/uL; Monocyte% 10.9 % (0-10); NRBC Flagged by Analyzer 0 % (0-5); Neutrophil # 3.23 X10^3/uL (2.7-7.7); Neutrophil % 51.9 % (47-70); Platelet Count 167 K/mm3 (150-450); RBC Distribution Width CV 16.6 % (11.6-14.6); RBC Distribution Width SD 55.8 fl (35.1-43.9); Red Blood Count 3.85 M/mm3 (4.6-6.2); White Blood Count 6.2 K/mm3 (4.4-11.0)
[2020-05-06 17:29] LABS: Anion Gap 7 (5-15); BUN 14 mg/dL (7-18); BUN/Creat Ratio 10.2 RATIO (10-20); CRP < 2.90 mg/L (0.0-3.0); Calcium,Total 8.4 mg/dL (8.5-10.1); Chloride 109 mmol/L (98-107); Creatinine, Serum 1.37 mg/dL (0.70-1.30); EST Glomerular Filtration Rate 53 mL/min (>60); Est Glom Filt Rate - Afr Amer 65 mL/min (>60); Glucose 86 mg/dL (74-106); Potassium 4.4 mmol/L (3.5-5.1); Sodium Level 141 mmol/L (136-145); Uric Acid 8.2 mg/dL (3.5-7.2)
== END ==
PROVIDERS: PCP Family Medicine Geriatric Medicine; Visit Provider Family Medicine Geriatric Medicine
DX: R79.9 Abnormal finding of blood chemistry, unspecified (principal); M19.042 Primary osteoarthritis, left hand; M19.041 Primary osteoarthritis, right hand
CPT/HCPCS: 36415; 73130; 80048; 84550; 85025; 86140

== ENCOUNTER → 2020-06-05 14:49 | Outpatient (CLI) | payer MEDICARE, SELFPAY ==
[2020-06-05 15:19] LABS: Absolute Lymphocyte Count 1.92 X10^3/uL (0.83-4.51); Basophil# 0.01 X10^3/uL; Basophil% 0.1 % (0-1); Eosinophils% 1.5 % (0-5); Hematocrit 37.9 % (40-54); Hemoglobin 12.3 g/dL (13.0-16.5); Lymphocyte # 1.92 X10^3/ul (4.0); Lymphocyte % 28.2 % (19-41); Mean Corp Hgb Conc 32.5 g/dL (32-36); Mean Corpuscular Hgb 29.9 pg (27.0-32.0); Mean Platelet Vol. 9.2 fl (6.2-12.0); Monocyte% 11.7 % (0-10); NRBC Flagged by Analyzer 0 % (0-5); Neutrophil # 3.96 X10^3/uL (2.7-7.7); Neutrophil % 58.2 % (47-70); Platelet Count 169 K/mm3 (150-450); RBC Distribution Width CV 14.8 % (11.6-14.6); RBC Distribution Width SD 49.9 fl (35.1-43.9); Red Blood Count 4.12 M/mm3 (4.6-6.2); White Blood Count 6.8 K/mm3 (4.4-11.0)
[2020-06-05 15:35] LABS: Vitamin D,25 Hydroxy 26.9 ng/mL
[2020-06-05 15:41] LABS: ALB/GLOB Ratio 0.8 RATIO (0.9-2.4); AST(SGOT) 19 U/L (15-37); Alanine Aminotransfer ALT/SGPT 29 U/L (16-61); Alkaline Phosphatase 93 U/L (45-117); Anion Gap 5 (5-15); BUN 18 mg/dL (7-18); BUN/Creat Ratio 13.1 RATIO (10-20); Calcium,Total 8.3 mg/dL (8.5-10.1); Chloride 113 mmol/L (98-107); Creatinine, Serum 1.37 mg/dL (0.70-1.30); EST Glomerular Filtration Rate 53 mL/min (>60); Est Glom Filt Rate - Afr Amer 65 mL/min (>60); Globulin 3.9 g/dL (2.2-4.2); Glucose 92 mg/dL (74-106); Potassium 4.2 mmol/L (3.5-5.1); Protein, Total 6.9 g/dL (6.4-8.2); Sodium Level 140 mmol/L (136-145); Thyroid Stim Hormone (TSH) 2.03 uIU/mL (0.358-3.74); Uric Acid 3.4 mg/dL (3.5-7.2)
== END ==
PROVIDERS: PCP Family Medicine Geriatric Medicine; Visit Provider Family Medicine Geriatric Medicine
DX: E55.9 Vitamin D deficiency, unspecified (principal); I10 Essential (primary) hypertension; M10.9 Gout, unspecified
CPT/HCPCS: 36415; 80053; 82306; 84443; 84550; 85025

== ENCOUNTER → 2020-09-16 13:40 | Outpatient (CLI) | payer MEDICARE, SELFPAY ==
--- NOTE | 2020-09-16 13:50 | RAD_ITS ---
STUDY: X-RAY - UNILATERAL RIBS ( LEFT ) WITH CHEST REASON FOR EXAM: Male, 79 years old. FELL 6 DAYS AGO. AXILLARY RIB PAIN TECHNIQUE - RIBS: 4 view(s) of the ribs. TECHNIQUE - CHEST: Single PA view of the chest. COMPARISON: 05/05/2014 FINDINGS - RIBS: Normal visualized ribs without a demonstrated fracture. FINDINGS - CHEST: The lungs are clear and expanded. There is no demonstrated pleural abnormality. Normal size heart. Normal mediastinum and dolores. Normal visualized pulmonary arteries. Normal visualized aortic arch and descending thoracic aorta. Normal visualized thoracic spine. Normal visualized ribs, clavicles, and shoulders. There is no demonstrated abnormality of the visualized soft tissue structures of the upper abdomen. RAD/Ribs Uni Min 3V w/PA Chest IMPRESSION: RIBS: Normal x-ray examination of the ribs. CHEST: Normal x-ray examination of the chest. Electronically Signed: Barrie Joshua MD at 17:08 EST Tel , Service support ,
== END ==
PROVIDERS: PCP Family Medicine Geriatric Medicine; Referring Provider Family Medicine Geriatric Medicine; Visit Provider Family Medicine Geriatric Medicine
DX: R07.81 Pleurodynia (principal)
CPT/HCPCS: 71101

== ENCOUNTER → 2020-12-08 13:17 | Outpatient (CLI) | payer MEDICARE, SELFPAY ==
[2020-12-08 14:44] LABS: Absolute Lymphocyte Count 2.33 X10^3/uL (0.83-4.51); Absolute Neutrophil Count 5.2 X10^3/uL (2.0-7.7); Basophil# 0.04 X10^3/uL; Basophil% 0.5 % (0-1); Eosinophil# 0.09 X10^3/uL; Eosinophils% 1.1 % (0-5); Hematocrit 37.9 % (40-54); Hemoglobin 12.5 g/dL (13.0-16.5); Lymphocyte # 2.33 X10^3/ul (4.0); Lymphocyte % 27.6 % (19-41); Mean Corpuscular Hgb 30.3 pg (27.0-32.0); Mean Platelet Vol. 9.6 fl (6.2-12.0); Monocyte# 0.76 X10^3/uL; NRBC Flagged by Analyzer 0 % (0-5); Neutrophil % 61.4 % (47-70); Platelet Count 183 K/mm3 (150-450); RBC Distribution Width CV 14.4 % (11.6-14.6); RBC Distribution Width SD 48.4 fl (35.1-43.9); Red Blood Count 4.12 M/mm3 (4.6-6.2); White Blood Count 8.5 K/mm3 (4.4-11.0)
[2020-12-08 15:04] LABS: Vitamin D,25 Hydroxy 15.5 ng/mL
[2020-12-08 15:23] LABS: ALB/GLOB Ratio 0.8 RATIO (0.9-2.4); AST(SGOT) 19 U/L (15-37); Alanine Aminotransfer ALT/SGPT 22 U/L (16-61); Alkaline Phosphatase 101 U/L (45-117); Anion Gap 8 (5-15); BUN 17 mg/dL (7-18); BUN/Creat Ratio 10.9 RATIO (10-20); Calcium,Total 8.5 mg/dL (8.5-10.1); Chloride 105 mmol/L (98-107); Creatinine, Serum 1.56 mg/dL (0.70-1.30); EST Glomerular Filtration Rate 46 mL/min (>60); Est Glom Filt Rate - Afr Amer 56 mL/min (>60); Globulin 3.8 g/dL (2.2-4.2); Glucose 81 mg/dL (74-106); Potassium 4.9 mmol/L (3.5-5.1); Protein, Total 6.8 g/dL (6.4-8.2); Sodium Level 138 mmol/L (136-145); Thyroid Stim Hormone (TSH) 2.17 uIU/mL (0.358-3.74); Uric Acid 7.4 mg/dL (3.5-7.2)
== END ==
PROVIDERS: PCP Family Medicine Geriatric Medicine; Visit Provider Family Medicine Geriatric Medicine
DX: E55.9 Vitamin D deficiency, unspecified (principal); I10 Essential (primary) hypertension; M10.9 Gout, unspecified
CPT/HCPCS: 36415; 80053; 82306; 84443; 84550; 85025

== ENCOUNTER → 2021-06-08 13:16 | Outpatient (CLI) | payer MEDICARE, SELFPAY ==
[2021-06-08 16:01] LABS: Absolute Lymphocyte Count 1.84 X10^3/uL (0.83-4.51); Absolute Neutrophil Count 5.1 X10^3/uL (2.0-7.7); Basophil# 0.04 X10^3/uL; Basophil% 0.5 % (0-1); Eosinophil# 0.08 X10^3/uL; Hematocrit 34.4 % (40-54); Hemoglobin 11.4 g/dL (13.0-16.5); Lymphocyte # 1.84 X10^3/ul (0.83-4.51); Lymphocyte % 23.9 % (19-41); Mean Corp Hgb Conc 33.1 g/dL (32-36); Mean Corpuscular Hgb 30.2 pg (27.0-32.0); Mean Corpuscular Volume 91.2 fL (80-94); Mean Platelet Vol. 9.1 fl (6.2-12.0); Monocyte# 0.66 X10^3/uL; Monocyte% 8.6 % (0-10); NRBC Flagged by Analyzer 0 % (0-5); Neutrophil # 5.06 X10^3/uL (2.7-7.7); Neutrophil % 65.7 % (47-70); Platelet Count 188 K/mm3 (150-450); RBC Distribution Width CV 15.6 % (11.6-14.6); RBC Distribution Width SD 52.1 fl (35.1-43.9); Red Blood Count 3.77 M/mm3 (4.6-6.2); White Blood Count 7.7 K/mm3 (4.4-11.0)
[2021-06-08 16:21] LABS: Vitamin D,25 Hydroxy 30.9 ng/mL
[2021-06-08 16:37] LABS: ALB/GLOB Ratio 0.8 RATIO (0.9-2.4); AST(SGOT) 15 U/L (15-37); Alanine Aminotransfer ALT/SGPT 23 U/L (16-61); Alkaline Phosphatase 94 U/L (45-117); Anion Gap 8 (5-15); BUN 19 mg/dL (7-18); BUN/Creat Ratio 12.8 RATIO (10-20); Calcium,Total 8.2 mg/dL (8.5-10.1); Chloride 106 mmol/L (98-107); Creatinine, Serum 1.48 mg/dL (0.70-1.30); EST Glomerular Filtration Rate 49 mL/min (>60); Est Glom Filt Rate - Afr Amer 59 mL/min (>60); Globulin 3.6 g/dL (2.2-4.2); Glucose 87 mg/dL (74-106); Potassium 4.3 mmol/L (3.5-5.1); Protein, Total 6.6 g/dL (6.4-8.2); Sodium Level 136 mmol/L (136-145); Uric Acid 7.7 mg/dL (3.5-7.2)
== END ==
PROVIDERS: PCP Family Medicine Geriatric Medicine; Visit Provider Family Medicine Geriatric Medicine
DX: I10 Essential (primary) hypertension (principal); M10.9 Gout, unspecified; E55.9 Vitamin D deficiency, unspecified
CPT/HCPCS: 36415; 80053; 82306; 84443; 84550; 85025

== ENCOUNTER 2021-11-18 14:31 | Outpatient (CLI) | payer MEDICARE, SELFPAY ==
[2021-11-18 15:18] LABS: Absolute Neutrophil Count 5.3 X10^3/uL (2.0-7.7); Basophil# 0.02 X10^3/uL; Basophil% 0.2 % (0-1); Eosinophil# 0.03 X10^3/uL; Eosinophils% 0.4 % (0-5); Hematocrit 37.5 % (40-54); Lymphocyte % 26.4 % (19-41); Mean Corpuscular Hgb 29.8 pg (27.0-32.0); Mean Corpuscular Volume 93.1 fL (80-94); Mean Platelet Vol. 9.4 fl (6.2-12.0); Monocyte# 0.74 X10^3/uL; Monocyte% 8.9 % (0-10); NRBC Flagged by Analyzer 0 % (0-5); Neutrophil # 5.31 X10^3/uL (2.7-7.7); Neutrophil % 63.7 % (47-70); Platelet Count 164 K/mm3 (150-450); Red Blood Count 4.03 M/mm3 (4.6-6.2); White Blood Count 8.3 K/mm3 (4.4-11.0)
[2021-11-18 15:36] LABS: Vitamin D,25 Hydroxy 24.4 ng/mL
[2021-11-18 15:48] LABS: ALB/GLOB Ratio 0.8 RATIO (0.9-2.4); AST(SGOT) 12 U/L (15-37); Alanine Aminotransfer ALT/SGPT 22 U/L (16-61); Alkaline Phosphatase 94 U/L (45-117); Anion Gap 3 (5-15); BUN 19 mg/dL (7-18); BUN/Creat Ratio 12.8 RATIO (10-20); Calcium,Total 8.5 mg/dL (8.5-10.1); Chloride 107 mmol/L (98-107); Cholesterol 136 mg/dL (200); Creatinine, Serum 1.49 mg/dL (0.70-1.30); EST Glomerular Filtration Rate 48 mL/min (>60); Est Glom Filt Rate - Afr Amer 58 mL/min (>60); Globulin 3.7 g/dL (2.2-4.2); Glucose 96 mg/dL (74-106); High Density Lipoprotein 47 mg/dL; Potassium 4.7 mmol/L (3.5-5.1); Protein, Total 6.7 g/dL (6.4-8.2); Sodium Level 137 mmol/L (136-145); Thyroid Stim Hormone (TSH) 1.77 uIU/mL (0.358-3.74); Triglycerides 137 mg/dL; Very Low Density Lipoprotein 27 mg/dL (5-40)
[2021-11-19 06:58] LABS: Uric Acid 7.4 mg/dL (3.5-7.2)
[2021-11-19 08:42] LABS: PTHIN 80.3 pg/mL (18.4-80.1)
== END 2021-11-18 23:59 | disposition short-term general hospital (02) ==
PROVIDERS: PCP Family Medicine Geriatric Medicine; Visit Provider Internal Medicine Nephrology
DX: I12.9 Hypertensive chronic kidney disease with stage 1 through stage 4 chronic kidney disease, or unspecified chronic kidney disease (principal); N18.32 Chronic kidney disease, stage 3b; E55.9 Vitamin D deficiency, unspecified; M10.9 Gout, unspecified
CPT/HCPCS: 36415; 80053; 80061; 82306; 83970; 84443; 84550; 85025